=== PATIENT | female | born 1940 | race Caucasian/White ===

== ENCOUNTER 2018-09-02 14:30 | Emergency (ER) | payer MEDICARE, OTHER ==
[2018-09-02] MEDS ORDERED: SODIUM CHLORIDE 0.9% 1,000 ML IV STA (15:16)
--- NOTE | 2018-09-02 16:08 | XR ---
EXAMINATION TYPE: XR chest 2V DATE OF EXAM: 09/02/2018 COMPARISON: NONE HISTORY: Chest pain TECHNIQUE: Frontal and lateral views of the chest are obtained. FINDINGS: There is a moderate hiatal hernia present. Subacute appearing nondisplaced fracture of the posterior margin of right rib 6 is seen. There is pulmonary hyperinflation and increased anterior po sterior diameter of the chest with flattening of the diaphragms on the lateral image representing und erlying COPD. Heart is enlarged. There is generalized osseous demineralization. No focal consolidatio n, pleural effusion or pneumothorax. IMPRESSION: 1. Moderate hiatal hernia. 2. Radiographic sequela of COPD. 3. Nondisplaced posterior right rib 6 fracture appearing subacute. 4. Mild cardiomegaly. 5. Generalized osseous demineralization.
[2018-09-02 16:09] LABS: Basophils % (A) 0 %; Eosinophils # (A) 0.1 k/uL (0-0.7); Eosinophils % (A) 2 %; HCT 37.1 % (34.0-46.0); HGB 11.9 gm/dL (11.4-16.0); Lymphocytes # (A) 2.5 k/uL (1.0-4.8); Lymphocytes % (A) 33 %; MCH 29.7 pg (25.0-35.0); MCHC 32.1 g/dL (31.0-37.0); MCV 92.3 fL (80.0-100.0); Mean Platelet Volume 7.2; Monocytes # (A) 0.4 k/uL (0-1.0); Monocytes % (A) 5 %; Neutrophils # (A) 4.4 k/uL (1.3-7.7); Neutrophils % (A) 58 %; Platelet Count 343 k/uL (150-450); RBC 4.02 m/uL (3.80-5.40); RDW 12.6 % (11.5-15.5); WBC 7.6 k/uL (3.8-10.6)
[2018-09-02 16:22] LABS: INR 0.9 (<1.2); Partial Thromboplastin Time 23.3 sec (22.0-30.0); Prothrombin Time 9.8 sec (9.0-12.0)
[2018-09-02 16:23] VITALS: RESP 18
[2018-09-02 16:24] LABS: Calcium 9.2 mg/dL (8.4-10.2); Magnesium 1.8 mg/dL (1.6-2.3); Potassium 4.5 mmol/L (3.5-5.1); Total Bilirubin 0.3 mg/dL (0.2-1.3); Total Protein 6.9 g/dL (6.3-8.2)
--- NOTE | 2018-09-02 17:24 | CT ---
EXAMINATION TYPE: CT ChestAbdPelvis w con DATE OF EXAM: 09/02/2018 COMPARISON: CT abdomen 11/07/2012 HISTORY: Low back and Abdominal pain CT DLP: 676.9 mGycm Automated exposure control for dose reduction was used. CONTRAST: CT scan of the chest, abdomen and pelvis is performed without Oral Contrast and with IV Contrast, pat ient injected with 100 mL of Isovue 300. FINDINGS: There is minimal pulmonary emphysema. There is mild pleural scarring at the lung apices. There is mil d pleural thickening at the superior right major fissure. There is a mild infiltrate in the anterior segment left upper lobe. I see no pulmonary mass. There is a hiatal hernia. Thoracic aorta is atherom atous. There is no thoracic aortic aneurysm or dissection. There are multiple calcified bronchial lym ph nodes. There are enlarged mediastinal and bronchial lymph nodes that measure up to 23 x 16 mm. There are multiple calcified splenic granulomata. There is no evidence of a pancreatic mass. Liver sh ows no focal defect. The bile ducts are not dilated. Gallbladder appears normal. There is no adrenal mass. Kidneys show satisfactory contrast opacification. There is no hydronephrosi s. There is 1 cm cortical cyst lower pole right kidney. Abdominal aorta is atheromatous. There is mil d to centimeter aneurysm of the lower abdominal aorta. There is no retroperitoneal adenopathy. There is no evidence of abdominal aortic dissection. There is no retroperitoneal adenopathy. The bladder distends smoothly. There is no inguinal hernia. There is no free fluid in the pelvis. The re are scattered sigmoid diverticula. There is no evidence of diverticulitis. I see no dilated loops of bowel. There is no intestinal wall thickening. There is some spondylotic changes in the lumbar spine with disc space narrowing and spur formation. T here is no compression fracture seen in the thoracic and lumbar spine. The bony pelvis appears intact . IMPRESSION: Spondylotic changes in the lumbar spine without significant spinal stenosis. Mild thoraco lumbar levorotoscoliosis. Small 3 cm aneurysm of the lower abdominal aorta. Atherosclerotic vascular disease. Minimal sigmoid diverticulosis. Hiatal hernia. Minimal pulmonary emphysema. Minimal pleural scarring. Mediastinal and bronchial adeno gifty with calcification. This could relate to old granulomatous disease.
[2018-09-02 17:32] LABS: Appearance,Urine Clear (Clear); Bilirubin,Urine Negative (Negative); Blood,Urine Negative (Negative); Color,Urine Colorless; Glucose,Urine (UA) Negative (Negative); Ketones,Urine Negative (Negative); Leukocyte Esterase,Urine Small (Negative); Mucus,Urine Rare /hpf; Nitrite,Urine Negative (Negative); Protein,Urine Negative (Negative); RBC,Urine <1 /hpf (0-5); Specific Gravity,Urine 1.012 (1.001-1.035); Squamous Epithelial Cell,Urine 1 /hpf (0-4); Urobilinogen,Urine <2.0 mg/dL (<2.0)
--- NOTE | 2018-09-02 18:16 | ED ---
General Adult HPI - General Chief complaint: Abdominal Pain Stated complaint: abd pain, sob Source: patient, RN notes reviewed, old records reviewed Mode of arrival: ambulatory Limitations: no limitations - History of Present Illness Initial comments: 78-year-old female patient with past medical history of COPD presents to ED with 3 days of suprapubic abdominal pain and shortness of breath at night. Patient states that she has a long history of shortness of breath secondary soup , however states that she feels he has gotten slightly worse at night. Patient denies chest pain, pleuritic chest pain. Patient denies any history of cardiovascular disease. Patient states that the pain has diminished suprapubic region. Patient states that she has had pain urination. Patient denies fever chills, nausea vomiting diarrhea. Systemic: Pt denies fatigue, myalgia, fever/chills, rash. Pt denies weakness, night sweats, weight loss. Neuro: Pt denies headache, visual disturbances, syncope or pre-syncope. HEENT: Pt denies ocular discharge or irritation, otalgia, rhinorrhea, pharyngitis or notable lymphadenopathy. Cardiopulmonary: Pt denies chest pain, heart palpitations, dyspnea on exertion. Abdominal/GI: Pt denies abdominal pain, n/v/d. : Pt denies frequency/urgency. Denies new onset urinary or bowel incontinence. MSK: Pt denies myalgia, loss of strength or function in extremities. Neuro: Pt denies new onset weakness, paresthesias. - Related Data Home Medications Medication Instructions Recorded Confirmed Cholecalciferol [Vitamin D3] 1,000 unit PO DAILY 09/02/18 09/02/18 Cyanocobalamin (Vitamin B-12) 1,000 mcg PO DAILY 09/02/18 09/02/18 [Vitamin B-12] Gabapentin [Neurontin] 100 mg PO TID 09/02/18 09/02/18 HYDROcodone/APAP 7.5-325MG [[place] 1 tab PO TID 09/02/18 09/02/18 7.5-325] Levothyroxine Sodium [Synthroid] 25 mcg PO DAILY 09/02/18 09/02/18 Melatonin 3 mg PO HS 09/02/18 09/02/18 Omeprazole 20 mg PO BID 09/02/18 09/02/18 Pravastatin Sodium [Pravachol] 40 mg PO DAILY 09/02/18 09/02/18 busPIRone HCl [Buspar] 10 mg PO TID 09/02/18 09/02/18 rOPINIRole HCL [Requip] 1 - 2 tab PO HS 09/02/18 09/02/18 Previous Rx's Medication Instructions Recorded Albuterol Inhaler [Ventolin Hfa 1 - 2 puff INHALATION Q4-6H PRN #1 09/02/18 Inhaler] inhaler predniSONE 50 mg PO DAILY #5 tab 09/02/18 Allergies Allergy/AdvReac Type Severity Reaction Status Date / Time Penicillins Allergy Unknown Verified 09/02/18 15:47 phenazopyridine Allergy Unknown Verified 09/02/18 15:47 [From Pyridium] Review of Systems ROS Statement: Those systems with pertinent positive or pertinent negative responses have been documented in the HPI. ROS Other: All systems not noted in ROS Statement are negative. Past Medical History Past Medical History: GERD/Reflux, Hyperlipidemia, Thyroid Disorder Additional Past Medical History / Comment(s): chronic back pain, colitis, prolonged QT History of Any Multi-Drug Resistant Organisms: None Reported Past Psychological History: Anxiety Smoking Status: Former smoker Past Alcohol Use History: None Reported Past Drug Use History: None Reported General Exam - General Exam Comments Initial Comments: Constitutional: NAD, AOX3, Pt has pleasant affect. HEENT: NC/AT, trachea midline, neck supple, no lymphadenopathy. Posterior pharynx non erythematous, without exudates. External ears appear normal, without discharge. Mucous membranes moist. Eyes PERRLA, EOM intact. There is no scleral icterus. No pallor noted. Cardiopulmonary: RRR, no murmurs, rubs or gallops, no JVD noted. Lungs CTAB in anterior and posterior moise. No peripheral edema. Abdominal exam: Abdomen soft and non-distended. Probably tender to palpation suprapubic region, no ecchymoses, Saavedra sign negative, no pain in McBurney's point. Bowel sounds active in LLQ. No hepatosplenomegaly. No ecchymosis Neuro: CN II-XII intact. No nuchal rigidity. MSK: No posterior calf tenderness bilaterally, homans sign negative bilaterally. Posterior tibialis and radial pulse +2 bilaterally. Sensation intact in upper and lower extremities. Full active ROM in upper and lower extremities, 5/5 strength. Limitations: no limitations Course Vital Signs 09/02/18 09/02/18 09/02/18 14:37 15:30 16:00 Temperature 98.4 F Pulse Rate 87 64 59 L Respiratory 20 19 18 Rate Blood Pressure 152/82 134/65 134/65 O2 Sat by Pulse 99 97 99 Oximetry 09/02/18 09/02/18 16:30 19:20 Temperature 97.8 F Pulse Rate 56 L 53 L Respiratory 18 18 Rate Blood Pressure 134/65 143/68 O2 Sat by Pulse 98 98 Oximetry Medical Decision Making - Medical Decision Making 78-year-old female patient with past medical history of COPD presents to ED with 3 days of suprapubic abdominal pain and shortness of breath at night. Patient states that she has a long history of shortness of breath secondary soup , however states that she feels he has gotten slightly worse at night. Patient denies chest pain, pleuritic chest pain. Patient denies any history of cardiovascular disease. Patient states that the pain has diminished suprapubic region. Patient states that she has had pain urination. Patient denies fever chills, nausea vomiting diarrhea. Extensive evaluation conducted. EKG is not concerning for acute ischemia. Laboratory investigations including CBC, CMP, coagulation studies, UA, troponin, BNP were all within normal limits. CT chest abdomen pelvis displayed a 3 cm thoracic abdominal aneurysm, CABG, no other abnormal findings. Plain films displayed subacute possible posterior fracture, however not visualized on CT. Findings explained patient length. explained to patient that pain w/ urination are likely secondary to atrophic vaginitis, secondary to age. Shortness of breath secondary to COPD exacerbation. Patient treated for COPD exacerbation with prednisone. Patient to follow with primary care provider in 1-2 days. Patient to return to ED if new signs and symptoms of including chest pain shows breath abdominal pain, any other new symptoms. Case discussed with Dr. Means. - Lab Data Result diagrams: 09/02/18 15:28 09/02/18 15:28 Lab Results 09/02/18 09/02/18 09/02/18 Range/Units 15:28 15:28 15:28 WBC 7.6 (3.8-10.6) k/uL RBC 4.02 (3.80-5.40) m/uL Hgb 11.9 (11.4-16.0) gm/dL Hct 37.1 (34.0-46.0) % MCV 92.3 (80.0-100.0) fL MCH 29.7 (25.0-35.0) pg MCHC 32.1 (31.0-37.0) g/dL RDW 12.6 (11.5-15.5) % Plt Count 343 (150-450) k/uL Neutrophils % 58 % Lymphocytes % 33 % Monocytes % 5 % Eosinophils % 2 % Basophils % 0 % Neutrophils # 4.4 (1.3-7.7) k/uL Lymphocytes # 2.5 (1.0-4.8) k/uL Monocytes # 0.4 (0-1.0) k/uL Eosinophils # 0.1 (0-0.7) k/uL Basophils # 0.0 (0-0.2) k/uL PT (9.0-12.0) sec INR (<1.2) APTT (22.0-30.0) sec Sodium 138 (137-145) mmol/L Potassium 4.5 (3.5-5.1) mmol/L Chloride 107 (98-107) mmol/L Carbon Dioxide 22 (22-30) mmol/L Anion Gap 9 mmol/L BUN 11 (7-17) mg/dL Creatinine 0.80 (0.52-1.04) mg/dL Est GFR (CKD-EPI)AfAm 82 (>60 ml/min/1.73 sqM) Est GFR (CKD-EPI)NonAf 71 (>60 ml/min/1.73 sqM) Glucose 95 (74-99) mg/dL Plasma Lactic Acid Moise 1.1 (0.7-2.0) mmol/L Calcium 9.2 (8.4-10.2) mg/dL Phosphorus 4.0 (2.5-4.5) mg/dL Magnesium 1.8 (1.6-2.3) mg/dL Total Bilirubin 0.3 (0.2-1.3) mg/dL AST 20 (14-36) U/L ALT 27 (9-52) U/L Alkaline Phosphatase 63 (38-126) U/L Troponin I (0.000-0.034) ng/mL NT-Pro-B Natriuret Pep pg/mL Total Protein 6.9 (6.3-8.2) g/dL Albumin 4.0 (3.5-5.0) g/dL Amylase 51 (30-110) U/L Lipase 34 (23-300) U/L Urine Color Urine Appearance (Clear) Urine pH (5.0-8.0) Ur Specific [place] (1.001-1.035) Urine Protein (Negative) Urine Glucose (UA) (Negative) Urine Ketones (Negative) Urine Blood (Negative) Urine Nitrite (Negative) Urine Bilirubin (Negative) Urine Urobilinogen (<2.0) mg/dL Ur Leukocyte Esterase (Negative) Urine RBC (0-5) /hpf Urine WBC (0-5) /hpf Ur Squamous Epith Cells (0-4) /hpf Urine Mucus (None) /hpf 09/02/18 09/02/18 09/02/18 Range/Units 15:28 15:28 15:28 WBC (3.8-10.6) k/uL RBC (3.80-5.40) m/uL Hgb (11.4-16.0) gm/dL Hct (34.0-46.0) % MCV (80.0-100.0) fL MCH (25.0-35.0) pg MCHC (31.0-37.0) g/dL RDW (11.5-15.5) % Plt Count (150-450) k/uL Neutrophils % % Lymphocytes % % Monocytes % % Eosinophils % % Basophils % % Neutrophils # (1.3-7.7) k/uL Lymphocytes # (1.0-4.8) k/uL Monocytes # (0-1.0) k/uL Eosinophils # (0-0.7) k/uL Basophils # (0-0.2) k/uL PT 9.8 (9.0-12.0) sec INR 0.9 (<1.2) APTT 23.3 (22.0-30.0) sec Sodium (137-145) mmol/L Potassium (3.5-5.1) mmol/L Chloride (98-107) mmol/L Carbon Dioxide (22-30) mmol/L Anion Gap mmol/L BUN (7-17) mg/dL Creatinine (0.52-1.04) mg/dL Est GFR (CKD-EPI)AfAm (>60 ml/min/1.73 sqM) Est GFR (CKD-EPI)NonAf (>60 ml/min/1.73 sqM) Glucose (74-99) mg/dL Plasma Lactic Acid Moise (0.7-2.0) mmol/L Calcium (8.4-10.2) mg/dL Phosphorus (2.5-4.5) mg/dL Magnesium (1.6-2.3) mg/dL Total Bilirubin (0.2-1.3) mg/dL AST (14-36) U/L ALT (9-52) U/L Alkaline Phosphatase (38-126) U/L Troponin I <0.012 (0.000-0.034) ng/mL NT-Pro-B Natriuret Pep 489 pg/mL Total Protein (6.3-8.2) g/dL Albumin (3.5-5.0) g/dL Amylase (30-110) U/L Lipase (23-300) U/L Urine Color Urine Appearance (Clear) Urine pH (5.0-8.0) Ur Specific [place] (1.001-1.035) Urine Protein (Negative) Urine Glucose (UA) (Negative) Urine Ketones (Negative) Urine Blood (Negative) Urine Nitrite (Negative) Urine Bilirubin (Negative) Urine Urobilinogen (<2.0) mg/dL Ur Leukocyte Esterase (Negative) Urine RBC (0-5) /hpf Urine WBC (0-5) /hpf Ur Squamous Epith Cells (0-4) /hpf Urine Mucus (None) /hpf 09/02/18 Range/Units 17:06 WBC (3.8-10.6) k/uL RBC (3.80-5.40) m/uL Hgb (11.4-16.0) gm/dL Hct (34.0-46.0) % MCV (80.0-100.0) fL MCH (25.0-35.0) pg MCHC (31.0-37.0) g/dL RDW (11.5-15.5) % Plt Count (150-450) k/uL Neutrophils % % Lymphocytes % % Monocytes % % Eosinophils % % Basophils % % Neutrophils # (1.3-7.7) k/uL Lymphocytes # (1.0-4.8) k/uL Monocytes # (0-1.0) k/uL Eosinophils # (0-0.7) k/uL Basophils # (0-0.2) k/uL PT (9.0-12.0) sec INR (<1.2) APTT (22.0-30.0) sec Sodium (137-145) mmol/L Potassium (3.5-5.1) mmol/L Chloride (98-107) mmol/L Carbon Dioxide (22-30) mmol/L Anion Gap mmol/L BUN (7-17) mg/dL Creatinine (0.52-1.04) mg/dL Est GFR (CKD-EPI)AfAm (>60 ml/min/1.73 sqM) Est GFR (CKD-EPI)NonAf (>60 ml/min/1.73 sqM) Glucose (74-99) mg/dL Plasma Lactic Acid [place] (0.7-2.0) mmol/L Calcium (8.4-10.2) mg/dL Phosphorus (2.5-4.5) mg/dL Magnesium (1.6-2.3) mg/dL Total Bilirubin (0.2-1.3) mg/dL AST (14-36) U/L ALT (9-52) U/L Alkaline Phosphatase (38-126) U/L Troponin I (0.000-0.034) ng/mL NT-Pro-B Natriuret Pep pg/mL Total Protein (6.3-8.2) g/dL Albumin (3.5-5.0) g/dL Amylase (30-110) U/L Lipase (23-300) U/L Urine Color Colorless Urine Appearance Clear (Clear) Urine pH 7.0 (5.0-8.0) Ur Specific [place] 1.012 (1.001-1.035) Urine Protein Negative (Negative) Urine Glucose (UA) Negative (Negative) Urine Ketones Negative (Negative) Urine Blood Negative (Negative) Urine Nitrite Negative (Negative) Urine Bilirubin Negative (Negative) Urine Urobilinogen <2.0 (<2.0) mg/dL Ur Leukocyte Esterase Small H (Negative) Urine RBC <1 (0-5) /hpf Urine WBC 2 (0-5) /hpf Ur Squamous Epith Cells 1 (0-4) /hpf Urine Mucus Rare H (None) /hpf - EKG Data -: EKG Interpreted by Me (and dr means) EKG Comments: Intercurrent 55,. Follow 170, QRS 72, QT/QTc 472/451, sinus bradycardia otherwise normal EKG. Disposition Clinical Impression: COPD exacerbation Disposition: HOME SELF-CARE Condition: Good Instructions: COPD (Chronic Obstructive Pulmonary Disease) (ED) Additional Instructions: Patient to adhere to previously discussed treatment plan and will take medication(s) as directed. Patient to follow up with PCP in 1-2 days. Patient to return to ED if symptoms do not improve. Prescriptions: Albuterol Inhaler [Ventolin Hfa Inhaler] 1 - 2 puff INHALATION Q4-6H PRN #1 inhaler PRN Reason: Cough predniSONE 50 mg PO DAILY #5 tab Is patient prescribed a controlled substance at d/c from ED?: No Referrals: Sveta Reyes MD [Primary Care Provider] - 1-2 days Time of Disposition: 18:30
[2018-09-02 19:22] VITALS: BP 143/68; PULSE 53; TEMP 97.8
== END 2018-09-02 19:20 | disposition home or self-care (01) ==
LOC: EC 14:30
DX: J44.1 Chronic obstructive pulmonary disease with (acute) exacerbation (principal); I71.2 Thoracic aortic aneurysm, without rupture; I71.4 Abdominal aortic aneurysm, without rupture; R30.9 Painful micturition, unspecified; K21.9 Gastro-esophageal reflux disease without esophagitis; E78.5 Hyperlipidemia, unspecified; E07.9 Disorder of thyroid, unspecified; M54.9 Dorsalgia, unspecified; G89.29 Other chronic pain; F41.9 Anxiety disorder, unspecified; Z87.891 Personal history of nicotine dependence; Z79.891 Long term (current) use of opiate analgesic; Z79.899 Other long term (current) drug therapy; Z88.0 Allergy status to penicillin; Z88.8 Allergy status to other drugs, medicaments and biological substances
CPT/HCPCS: 36415; 93005; 83880; 80053; 82150; 83605; 83690; 83735; 84100; 84484; 85025; 85610; 85730; 81001; 71046; 71260; 74177; 99285; 96360; Q9967

== ENCOUNTER 2018-11-13 08:42 | Day surgery (SDC) | payer MEDICARE, OTHER ==
[2018-11-11 09:37] VITALS: BMI 24.2
[2018-11-13 09:12] VITALS: RESP 20; TEMP 97.1
[2018-11-13] MEDS ORDERED: LACTATED RINGERS 1,000 ML IV ONE ×2 (09:37)
[2018-11-13] MEDS ORDERED: HYDROcodone/APAP 7.5-325MG 1 EACH TAB PO ONE (09:44)
[2018-11-13] MEDS ORDERED: PROPOFOL 10 MG/ML 20 ML VIAL IV ONE (09:49)
[2018-11-13] MEDS ORDERED: LIDOCAINE 1% INJ 10MG/ML (20 ML MDV) ONE (09:49)
[2018-11-13] MEDS ORDERED: HYDROCODONE PO ONE (10:00)
[2018-11-13] MEDS ORDERED: APAP PO ONE (10:00)
--- NOTE | 2018-11-13 10:09 | P.PCN ---
Date of Procedure: 11/13/18 Procedure(s) Performed: BRIEF HISTORY: Patient is a 78-year-old, pleasant, female, scheduled for an upper endoscopy as a part of a value should've symptomatic pyloric stenosis. Last upper endoscopy with pyloric dilation was done in 2016. Lately has been having early satiety, epigastric discomfort and progressive weight loss.. PROCEDURE PERFORMED: Esophagogastroduodenoscopy with pyloric dilation. PREOPERATIVE DIAGNOSIS: Symptomatic pyloric stenosis. IV sedation per anesthesia. PROCEDURE: After informed consent was obtained, the patient was brought into the endoscopy unit. IV sedation was administered by Anesthesia under continuous monitoring. Initially the Olympus GIF-140 video endoscope was inserted into the mouth. Esophagus intubated without any difficulty. It was gradually advanced into the stomach . There was evidence of pyloric stenosis and the scope could not be advanced into the duodenum. At this time I proceeded with balloon dilation using 8-10 mm TTS balloon for 90 seconds and following this adequate dilation was not accomplished. At this time a 10-12 mm TTS balloon was passed through the scope and was dilated for 90 seconds in sequential fashion and following this there was some mucosal tear identified. The scope at this time was advanced into the duodenum. The bulb and the second part of the duodenum appeared normal. The scope at this time was withdrawn to the stomach, adequately insufflated with air, and upon careful examination, mucosa of the antrum, body, cardia and the fundus appeared normal. The scope was then withdrawn into the esophagus. The GE junction was located at 39 cm from the incisors. The esophagus appeared normal. Small hiatal hernia noted. There were no erosions or ulcerations seen and the patient tolerated the procedure well. IMPRESSION: 1. Tight pyloric stenosis status post balloon dilation using 8, 9, 10, 11 and 12 mm TTS balloon as described. 2. Hiatal hernia. RECOMMENDATIONS: The findings of this examination were discussed with the patient. She will remain on a clear liquid diet today. She will continue with Prilosec 20 mg daily and she'll be seen in office in 6 weeks
[2018-11-13 10:37] VITALS: BP 131/49; PULSE 65
== END 2018-11-13 10:57 | disposition home or self-care (01) ==
LOC: ORWHC2ENDO 08:42
PROVIDERS: ATTEND Internal Medicine Gastroenterology
DX: K31.1 Adult hypertrophic pyloric stenosis (principal); K44.9 Diaphragmatic hernia without obstruction or gangrene; I45.81 Long QT syndrome; Z87.891 Personal history of nicotine dependence; E07.9 Disorder of thyroid, unspecified; M54.16 Radiculopathy, lumbar region; K21.9 Gastro-esophageal reflux disease without esophagitis; Z79.890 Hormone replacement therapy; Z79.891 Long term (current) use of opiate analgesic; Z79.899 Other long term (current) drug therapy; Z88.0 Allergy status to penicillin
CPT/HCPCS: 43245; J2001; J2704; C1726; C1727

== ENCOUNTER 2018-11-30 20:22 | Emergency (ER) | payer MEDICARE, OTHER ==
[2018-11-30 20:39] VITALS: TEMP 98.3
[2018-11-30] MEDS ORDERED: DIAZEPAM 5 MG/ML 2 ML INJ IVP STA (22:02)
--- NOTE | 2018-11-30 22:22 | ED ---
General Adult HPI - General Chief complaint: Psychiatric Symptoms Stated complaint: Vaginal pain Time Seen by Provider: 11/30/18 20:47 Source: patient Mode of arrival: ambulatory Limitations: no limitations - History of Present Illness Initial comments: Julissa is a 78 yo female with past medical history most significant for chronic pain, fibromyalgia, restless leg syndrome, chronic urinary retention and dysuria. Patient presents the emergency department today for evaluation of chronic pain and depression. Patient reports that she's been taking her 7.5 mg Vicodin 3 times daily and has been compliant with her gabapentin but continues to have unbearable pain throughout her entire body. Patient states that today she told her daughter she couldn't live with this pain. Daughter bedside states that she feels that her mother's pain is not controlled that the pain is causing her mother depression. She reports that her mother spends all day in the home, she ports that she doesn't open the windows because the son makes her pain worse. Her mother doesn't into her activities of daily living she can no longer do housework her chores. She doesn't make her bed. Daughter states that today her mother was telling her that she was thinking of googling how many pills she would have to take to kill herself because she doesn't want to live like this anymore. - Related Data Home Medications Medication Instructions Recorded Confirmed Cholecalciferol [Vitamin D3] 1,000 unit PO DAILY 09/02/18 11/30/18 Cyanocobalamin (Vitamin B-12) 1,000 mcg PO DAILY 09/02/18 11/30/18 [Vitamin B-12] Gabapentin [Neurontin] 100 mg PO TID 09/02/18 11/30/18 HYDROcodone/APAP 7.5-325MG [[place] 1 tab PO TID PRN 09/02/18 11/30/18 7.5-325] Omeprazole 20 mg PO BID 09/02/18 11/30/18 Pravastatin Sodium [Pravachol] 40 mg PO DAILY 09/02/18 11/30/18 busPIRone HCl [Buspar] 10 mg PO TID 09/02/18 11/30/18 rOPINIRole HCL [Requip] 1 - 2 tab PO HS 09/02/18 11/30/18 Melatonin 10 mg PO HS 03/11/19 03/11/19 Previous Rx's Medication Instructions Recorded Cephalexin [Keflex] 500 mg PO Q8HR #21 cap 12/01/18 Diazepam [Valium] 5 mg PO TID PRN 3 Days #9 tab 12/01/18 Allergies Allergy/AdvReac Type Severity Reaction Status Date / Time Penicillins Allergy Unknown Verified 11/30/18 21:25 phenazopyridine Allergy Unknown Verified 11/30/18 21:25 [From Pyridium] Review of Systems ROS Statement: Those systems with pertinent positive or pertinent negative responses have been documented in the HPI. ROS Other: All systems not noted in ROS Statement are negative. Past Medical History Past Medical History: GERD/Reflux, Hyperlipidemia, Thyroid Disorder Additional Past Medical History / Comment(s): chronic back pain, colitis, prolonged QT, gastroscopy History of Any Multi-Drug Resistant Organisms: None Reported Past Surgical History: Bladder Surgery, Breast Surgery Additional Past Surgical History / Comment(s): rt breast biopsy- clip remains Past Anesthesia/Blood Transfusion Reactions: No Reported Reaction Past Psychological History: Anxiety Smoking Status: Smoker, current status unknown Past Alcohol Use History: None Reported Past Drug Use History: None Reported - Past Family History Daughter(s) Family Medical History: Cancer Sister(s) Family Medical History: Cancer Additional Family Medical History / Comment(s): lung cancer Brother(s) Family Medical History: Cancer, CVA/TIA Additional Family Medical History / Comment(s): liver cancer Mother Additional Family Medical History / Comment(s): hx myelofibrosis General Exam - General Exam Comments Initial Comments: Physical Exam GENERAL: Chronically ill-appearing elderly female HENT: Normocephalic, Atraumatic. EYES: PERRL, EOMI Pupils 5 mm reactive PULMONARY: Unlabored respirations. No audible rales rhonchi or wheezing was noted. CARDIOVASCULAR: There is a regular rate and rhythm without any murmurs gallops or rubs. ABDOMEN: Soft and nontender with normal bowel sounds. SKIN: Skin is clear with no lesions or rashes and otherwise unremarkable. : Deferred NEUROLOGIC: Patient is alert and oriented x3. Moving all extremities spontaneously MUSCULOSKELETAL: Normal extremities with adequate strength and full range of motion. No lower extremity swelling or edema. No calf tenderness. Generalized muscle atrophy PSYCHIATRIC: Helpless affect, depressed Limitations: no limitations Limitations: no limitations Course Vital Signs 11/30/18 12/01/18 20:34 02:00 Temperature 98.3 F Pulse Rate 79 86 Respiratory 18 16 Rate Blood Pressure 153/73 144/81 O2 Sat by Pulse 95 Oximetry Medical Decision Making - Medical Decision Making Patient was seen and evaluated history is obtained from patient and daughter bedside Patient with chronic pain, patient appears to be developing failure to thrive she's not getting out of bed not attending to ADLs, reports pain is intractable to by mouth narcotics Daughter expressing concern that the patient is becoming suicidal due to pain Valium was ordered for discomfort, patient will have basic labs and evaluation by psychiatric nursing Labs and no significant abnormalities ears results were discussed with the patient and daughter bedside. Patient reports a Valium helped momentarily however she is upset that she did not receive any stronger pain medications. I am morphine was ordered patient awaiting evaluation by EPS. Patient was evaluated by EPS who recommended outpatient follow-up. I suspect that the patient's pain is multifactorial including depression which exacerbates her somatic pain. I discussed this with the patient and daughter. I do think she would benefit from outpatient follow-up with pain management to discuss multiple modalities for pain management. Patient expressing disappointment that she is no longer on Klonopin and that her Percocet 7.5 mg do not work. I advised her that she will likely need more than just pills and will need some physical therapy for pain management, patient states she's not willing to do physical therapy. Patient daughter upset due to duration of her stay in the emergency department. Requesting repeat doses of narcotics prior to discharge, additional IM morphine given, patient discharged home. - Lab Data Result diagrams: 11/30/18 22:20 11/30/18 22:20 Lab Results 11/30/18 11/30/18 11/30/18 Range/Units 22:08 22:20 22:20 WBC 9.4 (3.8-10.6) k/uL RBC 3.95 (3.80-5.40) m/uL Hgb 11.9 (11.4-16.0) gm/dL Hct 36.3 (34.0-46.0) % MCV 91.9 (80.0-100.0) fL MCH 30.2 (25.0-35.0) pg MCHC 32.8 (31.0-37.0) g/dL RDW 12.2 (11.5-15.5) % Plt Count 340 (150-450) k/uL Neutrophils % 69 % Lymphocytes % 23 % Monocytes % 4 % Eosinophils % 2 % Basophils % 0 % Neutrophils # 6.5 (1.3-7.7) k/uL Lymphocytes # 2.2 (1.0-4.8) k/uL Monocytes # 0.4 (0-1.0) k/uL Eosinophils # 0.2 (0-0.7) k/uL Basophils # 0.0 (0-0.2) k/uL Sodium 137 (137-145) mmol/L Potassium 4.1 (3.5-5.1) mmol/L Chloride 107 (98-107) mmol/L Carbon Dioxide 21 L (22-30) mmol/L Anion Gap 9 mmol/L BUN 11 (7-17) mg/dL Creatinine 0.69 (0.52-1.04) mg/dL Est GFR (CKD-EPI)AfAm >90 (>60 ml/min/1.73 sqM) Est GFR (CKD-EPI)NonAf 84 (>60 ml/min/1.73 sqM) Glucose 109 H (74-99) mg/dL Calcium 9.4 (8.4-10.2) mg/dL Total Bilirubin 0.4 (0.2-1.3) mg/dL AST 19 (14-36) U/L ALT 28 (9-52) U/L Alkaline Phosphatase 80 (38-126) U/L Creatine Kinase 67 (30-135) U/L Total Protein 6.5 (6.3-8.2) g/dL Albumin 3.7 (3.5-5.0) g/dL TSH 1.880 (0.465-4.680) mIU/L Urine Color Light Yellow Urine Appearance Clear (Clear) Urine pH 5.5 (5.0-8.0) Ur Specific [place] 1.007 (1.001-1.035) Urine Protein Negative (Negative) Urine Glucose (UA) Negative (Negative) Urine Ketones Negative (Negative) Urine Blood Negative (Negative) Urine Nitrite Negative (Negative) Urine Bilirubin Negative (Negative) Urine Urobilinogen <2.0 (<2.0) mg/dL Ur Leukocyte Esterase Moderate H (Negative) Urine RBC 2 (0-5) /hpf Urine WBC 12 H (0-5) /hpf Ur Squamous Epith Cells 4 (0-4) /hpf Ur Transition Epith Cell 1 (0-1) /hpf Urine Bacteria Rare H (None) /hpf Hyaline Casts 1 (0-2) /lpf Urine Mucus Rare H (None) /hpf Urine Opiates Screen Detected H (NotDetected) Ur Oxycodone Screen Not Detected (NotDetected) Urine Methadone Screen Not Detected (NotDetected) Ur Propoxyphene Screen Not Detected (NotDetected) Ur Barbiturates Screen Not Detected (NotDetected) U Tricyclic Antidepress Not Detected (NotDetected) Ur Phencyclidine Scrn Not Detected (NotDetected) Ur Amphetamines Screen Not Detected (NotDetected) U Methamphetamines Scrn Not Detected (NotDetected) U Benzodiazepines Scrn Not Detected (NotDetected) Urine Cocaine Screen Not Detected (NotDetected) U Marijuana (THC) Screen Not Detected (NotDetected) Disposition Clinical Impression: Chronic pain, UTI (urinary tract infection) Disposition: HOME SELF-CARE Condition: Stable Instructions (If sedation given, give patient instructions): Fibromyalgia (ED), Chronic Pain (ED) Prescriptions: Cephalexin [Keflex] 500 mg PO Q8HR #21 cap Diazepam [Valium] 5 mg PO TID PRN 3 Days #9 tab PRN Reason: Pain Is patient prescribed a controlled substance at d/c from ED?: Yes When asked, does pt state using other controlled substances?: Yes If prescribed controlled substance>3 days was MAPS reviewed?: Prescribed <3 Days Referrals: Sveta Reyes MD [Primary Care Provider] - 1-2 days Gal Ro MD [STAFF PHYSICIAN] - 1-2 days
[2018-11-30 22:29] LABS: Basophils % (A) 0 %; Eosinophils # (A) 0.2 k/uL (0-0.7); Eosinophils % (A) 2 %; HCT 36.3 % (34.0-46.0); HGB 11.9 gm/dL (11.4-16.0); Lymphocytes # (A) 2.2 k/uL (1.0-4.8); Lymphocytes % (A) 23 %; MCH 30.2 pg (25.0-35.0); MCHC 32.8 g/dL (31.0-37.0); MCV 91.9 fL (80.0-100.0); Mean Platelet Volume 6.7; Monocytes # (A) 0.4 k/uL (0-1.0); Monocytes % (A) 4 %; Neutrophils # (A) 6.5 k/uL (1.3-7.7); Neutrophils % (A) 69 %; Platelet Count 340 k/uL (150-450); RBC 3.95 m/uL (3.80-5.40); RDW 12.2 % (11.5-15.5); WBC 9.4 k/uL (3.8-10.6)
[2018-11-30 22:30] LABS: Appearance,Urine Clear (Clear); Bacteria,Urine Rare /hpf; Bilirubin,Urine Negative (Negative); Blood,Urine Negative (Negative); Color,Urine Light Yellow; Glucose,Urine (UA) Negative (Negative); Hyaline Casts,Urine 1 /lpf (0-2); Ketones,Urine Negative (Negative); Leukocyte Esterase,Urine Moderate (Negative); Mucus,Urine Rare /hpf; Nitrite,Urine Negative (Negative); PH, Urine 5.5 (5.0-8.0); Protein,Urine Negative (Negative); RBC,Urine 2 /hpf (0-5); Specific Gravity,Urine 1.007 (1.001-1.035); Squamous Epithelial Cell,Urine 4 /hpf (0-4); Transitional Epi Cells,Urine 1 /hpf (0-1); Urobilinogen,Urine <2.0 mg/dL (<2.0); WBC,Urine 12 /hpf (0-5)
[2018-11-30] MEDS ORDERED: DIAZEPAM 5 MG TAB PO STA (22:30)
[2018-11-30 22:34] LABS: Amphetamine Screen,Urine Not Detected (NotDetected); Barbiturate Screen,Urine Not Detected (NotDetected); Benzodiazepines Screen,Urine Not Detected (NotDetected); Cocaine Screen,Urine Not Detected (NotDetected); Methadone Screen, Urine Not Detected (NotDetected); Opiate Screen,Urine Detected (NotDetected); Oxycodone Screen, Urine Not Detected (NotDetected); Phencyclidine Screen,Urine Not Detected (NotDetected); Tricyclic Antidepressant,Urine Not Detected (NotDetected); Urn Cannabinoid Scrn Not Detected (NotDetected)
[2018-11-30 22:39] LABS: ALT 28 U/L (9-52); AST 19 U/L (14-36); Albumin 3.7 g/dL (3.5-5.0); Alkaline Phosphatase 80 U/L (38-126); Anion Gap 9 mmol/L; Blood Urea Nitrogen 11 mg/dL (7-17); Calcium 9.4 mg/dL (8.4-10.2); Carbon Dioxide 21 mmol/L (22-30); Chloride 107 mmol/L (98-107); Creatine Kinase 67 U/L (30-135); Glucose 109 mg/dL (74-99); Potassium 4.1 mmol/L (3.5-5.1); Sodium 137 mmol/L (137-145); Total Bilirubin 0.4 mg/dL (0.2-1.3); Total Protein 6.5 g/dL (6.3-8.2)
[2018-11-30] MEDS ORDERED: MORPHINE SULFATE 4 MG/ML SYRINGE IM STA (23:37)
[2018-11-30] MEDS ORDERED: CEPHALEXIN 500MG STARTER PACK 4 CAP BTL PO STA (23:37)
[2018-12-01 02:26] VITALS: BP 144/81; PULSE 86; RESP 16
== END 2018-12-01 02:42 | disposition home or self-care (01) ==
LOC: EC 20:22
DX: G89.29 Other chronic pain (principal); N39.0 Urinary tract infection, site not specified; F32.9 Major depressive disorder, single episode, unspecified; K21.9 Gastro-esophageal reflux disease without esophagitis; E78.5 Hyperlipidemia, unspecified; F41.9 Anxiety disorder, unspecified; F17.200 Nicotine dependence, unspecified, uncomplicated; Z79.899 Other long term (current) drug therapy; Z88.0 Allergy status to penicillin; Z88.1 Allergy status to other antibiotic agents
CPT/HCPCS: 82075; 36415; 80053; 84443; 82550; 85025; 81001; 80306; 99283; 96372; J2270

== ENCOUNTER → 2019-01-28 | Outpatient (CLI) | payer MEDICARE, OTHER ==
--- NOTE | 2019-01-28 16:10 | CT ---
EXAMINATION TYPE: CT chest wo con DATE OF EXAM: 01/28/2019 COMPARISON: 09/02/2018 HISTORY: 78-year-old female shortness of breath, Difficulty breathing. TECHNIQUE: Contiguous axial scanning of the chest without IV contrast. Coronal and sagittal reconstru ctions performed. CT DLP: 279.7 mGycm Automated exposure control for dose reduction was used. FINDINGS: Heart normal size without pericardial effusion. Coronary vessel calcifications are present. Mild to moderate atherosclerotic arch calcifications. Conventional arch vessel branching anatomy. Calcified right hilar lymph nodes. There is confluent mediastinal, thoracic inlet, and supraclavicula r lymphadenopathy with lymph nodes measuring up to 2.1 cm. Prevascular space lymphadenopathy measures up to 2.3 cm. Subcarinal lymphadenopathy measures up to 1.9 cm. There is cut off of the left upper lobe and lingular bronchus. Volume loss and extensive opacity thro ughout the collapsed portion of the lung. There is irregular narrowing of the left mainstem and lower lobe are branches from extrinsic mass effect. Moderate underlying emphysema. Trace left pleural effusion. 4 mm nodularity posterior right lower lobe may have been present on the prior exam. New, too numerous to count hepatic lesions with severe burden to the liver. Bones: Dextroconvex scoliosis. Moderate to advanced degenerative disc disease lower thoracic spine. IMPRESSION: 1. PROGRESSIVE, NOW CONFLUENT MEDIASTINAL, THORACIC INLET, AND SUPRACLAVICULAR LYMPHADENOPATHY WITH L YMPH NODES MEASURING UP TO 2.3 CM. FINDINGS COMPATIBLE WITH METASTATIC DISEASE. 2. SOFT TISSUE NOW CUTS OFF THE LEFT UPPER LOBE AND LINGUAL BRONCHUS. THERE IS IRREGULAR NARROWING OF THE LEFT MAINSTEM AND LEFT LOWER LOBE BRONCHUS FROM EXTRINSIC MASS EFFECT, LIKELY SECONDARY TO ENCAS ING NEOPLASM. 3. VOLUME LOSS AND COMPLETE OPACIFICATION OF THE LEFT UPPER LOBE DUE TO A COMBINATION OF UNDERLYING M ASS, ATELECTASIS, AND/OR PNEUMONITIS. 4. SEVERE BURDEN OF NEW, DIFFUSE METASTATIC DISEASE TO THE LIVER. 5. COPD WITH MODERATE EMPHYSEMA AND TRACE LEFT EFFUSION.
== END | disposition home or self-care (01) ==
LOC: RADCTMAIN 15:30
PROVIDERS: ATTEND Family Medicine
DX: C22.8 Malignant neoplasm of liver, primary, unspecified as to type (principal); R91.8 Other nonspecific abnormal finding of lung field; J98.11 Atelectasis; J43.9 Emphysema, unspecified; R59.1 Generalized enlarged lymph nodes; J90 Pleural effusion, not elsewhere classified
CPT/HCPCS: 71250

== ENCOUNTER 2019-01-29 11:52 | Inpatient (IN) | payer MEDICARE, OTHER ==
[2019-01-29] MEDS ORDERED: HYDROcodone/APAP 5-325MG 1 EACH TAB PO PRN (14:05)
[2019-01-29] MEDS ORDERED: HYDROmorphone 1 MG/ML 1 ML SYRINGE IVP PRN (14:05)
[2019-01-29] MEDS ORDERED: ACETAMINOPHEN TAB 325 MG TAB PO PRN (14:05)
[2019-01-29 15:09] LABS: HCT 41.1 % (34.0-46.0); HGB 12.7 gm/dL (11.4-16.0); MCH 27.9 pg (25.0-35.0); MCHC 30.9 g/dL (31.0-37.0); MCV 90.2 fL (80.0-100.0); Mean Platelet Volume 6.8; Platelet Count 641 k/uL (150-450); RBC 4.55 m/uL (3.80-5.40); WBC 12.6 k/uL (3.8-10.6)
[2019-01-29 15:14] VITALS: BMI 24.0
[2019-01-29 15:26] LABS: Albumin 3.7 g/dL (3.5-5.0); Calcium 9.8 mg/dL (8.4-10.2); Potassium 4.8 mmol/L (3.5-5.1); Total Bilirubin 0.4 mg/dL (0.2-1.3); Total Protein 6.7 g/dL (6.3-8.2)
[2019-01-29] MEDS: IOPAMIDOL-300 CONTRAST 30 ML VIAL (ORAL USE) PO PRN ×2 (16:17→17:18)
[2019-01-29] MEDS: SODIUM CHLORIDE 0.9% 1,000 ML IV SCH (16:17)
[2019-01-29 16:54] LABS: Prothrombin Time 10.7 sec (9.0-12.0)
--- NOTE | 2019-01-29 16:58 | P.CNPUL ---
History of Present Illness Consult date: 01/29/19 Requesting physician: Manoj Stewart Reason for consult: abnormal CXR/CT Chief complaint: Left chest pain History of present illness: This is a very pleasant 78-year-old female patient who follows with Dr. Reyes as her primary care physician. She has a history of hypothyroidism, hyperlipidemia, gastroesophageal reflux disease, prolonged QT, colitis, chronic pain syndrome, fibromyalgia, restless leg syndrome, chronic urinary retention and dysuria. She has been maintained on [place] 7.5325 3 times a day when necessary. She has been seen in the emergency room and more than 1 occasion for the symptoms of pain. In August 2018 she had been seen in the emergency room for abdominal pain and shortness of breath. A CAT scan at that time revealed a mild infiltrate in the anterior segment of the left upper lobe. No pulmonary masses identified. There were enlarged mediastinal and bronchial lymph nodes measuring up to 23 x 16 mm. There was a small 3 cm aneurysm in the lower abdominal aorta which the family states was being followed in the outpatient setting. She was seen this week at an urgent care for continued pain and shortness of breath and noted abnormalities on a chest x-ray. She was scheduled yesterday for an outpatient CAT scan of the chest. This scan now reveals conflu ent mediastinal, thoracic inlet, and supra clavicular lymphadenopathy with lymph nodes measuring up to 2.3 cm compatible with metastatic disease. Soft tissue the left upper lobe and lingula bronchus. There is irregular narrowing of the left mainstem and left lower lobe bronchus from extrinsic mass effect, likely secondary to increasing neoplasm. There is volume loss and complete opacification of the left upper lobe due to a combination of underlying mass, atelectasis and/or pneumonitis. There is severe burden of new diffuse metastatic disease to the liver. Evidence of moderate emphysema with trace left pleural effusion. Based on these findings and the patient's continued complaints of pain including left chest wall and under her left arm she was referred as a direct admit for pain control by Dr. Bartlett. She is seen today in consultation on the oncology floor. She is currently awake and alert in no acute distress. She is maintaining O2 saturations in the mid 90s on room air. She's afebrile. Hemodynamically stable. White count 12.6. Hemoglobin 12.7. Creatinine 0.85. AST 78, ALT 74, alk phos 318. She has been initiated on [place], Dilaudid, IV Solu-Medrol. Computed tomography scan of the abdomen has been ordered as well. Review of Systems REVIEW OF SYSTEMS: CONSTITUTIONAL: Denies any recent significant weight loss, maybe 5 or 6 pounds in the last 3 months. EYES: Denies change in vision. EARS, NOSE, MOUTH, THROAT: Denies headaches, denies sore throat. CARDIOVASCULAR: Denies chest pain, palpitations or syncopal episodes. RESPIRATORY: Positive for shortness of breath, cough, congestion no hemoptysis. GASTROINTESTINAL: Denies change in appetite, denies abdominal pain GENITOURINARY: Denies hematuria, denies infections. MUSKULOSKELETAL: Positive for musculoskeletal pain, generalized as well as left chest wall. INTEGUMENTARY: Denies rash, denies eczema. NEUROLOGICAL: Denies recent memory loss, no recent seizure activity. PSYCHIATRIC: Positive for anxiety, depression. HEMATOLOGIC/LYMPHATIC: Denies anemia, denies enlarged lymph nodes. Past Medical History Past Medical History: COPD, Fibromyalgia, GERD/Reflux, Hyperlipidemia, Thyroid Disorder Additional Past Medical History / Comment(s): chronic back pain, Crohns, prolonged QT, Hepatitis A (20 yrs ago), Hx anemia., Hx of EGD with dilation., Bladder pain after urination., Walker prn. History of Any Multi-Drug Resistant Organisms: None Reported Past Surgical History: Bladder Surgery, Breast Surgery Additional Past Surgical History / Comment(s): rt breast biopsy- clip remains, EGD with Dilation Past Anesthesia/Blood Transfusion Reactions: No Reported Reaction Past Psychological History: Anxiety, Depression Smoking Status: Current every day smoker Past Alcohol Use History: None Reported Additional Past Alcohol Use History / Comment(s): smoked 50 years 1- 1 12 ppd quit 2015 Past Drug Use History: None Reported - Past Family History Daughter(s) Family Medical History: Cancer Sister(s) Family Medical History: Cancer Additional Family Medical History / Comment(s): lung cancer Brother(s) Family Medical History: Cancer, CVA/TIA Additional Family Medical History / Comment(s): liver cancer Mother Additional Family Medical History / Comment(s): hx myelofibrosis Medications and Allergies Home Medications Medication Instructions Recorded Confirmed Type Omeprazole 20 mg PO BID 09/02/18 01/29/19 History Pravastatin Sodium [Pravachol] 40 mg PO DAILY 09/02/18 01/29/19 History busPIRone HCl [Buspar] 15 mg PO BID 09/02/18 01/29/19 History Melatonin 10 mg PO HS 11/30/18 01/29/19 History Levothyroxine Sodium 25 mcg PO DAILY 12/17/18 01/29/19 History clonazePAM [KlonoPIN] 1 mg PO HS 12/17/18 01/29/19 History rOPINIRole HCL [Requip] 0.25 mg PO BID 12/17/18 01/29/19 History Cefuroxime Axetil [Ceftin] 500 mg PO BID 01/29/19 01/29/19 History Gabapentin [Neurontin] 900 mg PO TID 01/29/19 01/29/19 History methylPREDNISolone Dose Pack See Taper PO DAILY 01/29/19 01/29/19 History [Medrol Dose Pack] oxyCODONE-APAP 7.5-325MG [Percocet 1 tab PO Q6HR PRN 01/29/19 01/29/19 History 7.5-325 mg] Allergies Allergy/AdvReac Type Severity Reaction Status Date / Time Penicillins Allergy Unknown Verified 01/29/19 15:45 phenazopyridine Allergy Unknown Verified 01/29/19 15:45 [From Pyridium] Physical Exam Vitals: Vital Signs Temp Pulse Resp BP Pulse Ox 01/29/19 14:51 98 F 64 17 136/71 95 Intake and Output 01/29/19 01/29/19 01/29/19 06:59 14:59 22:59 Other: Weight 67.585 kg GENERAL EXAM: Pleasant 78-year-old female patient. Alert, in mild distress secondary to generalized pain. HEAD: Normocephalic. EYES: Normal reaction of pupils, equal size. NOSE: Clear with pink turbinates. THROAT: No erythema or exudates. NECK: No masses, no JVD. CHEST: No chest wall deformity. LUNGS: Equal air entry with no crackles, wheeze, rhonchi or dullness. CVS: S1 and S2 normal with no audible murmur, regular rhythm. ABDOMEN: No hepatosplenomegaly, normal bowel sounds, no guarding or rigidity. SPINE: Scoliosis SKIN: No rashes CENTRAL NERVOUS SYSTEM: No focal deficits, tone is normal in all 4 extremities. EXTREMITIES: There is no peripheral edema. No clubbing, no cyanosis. Peripheral pulses are intact. Results - Laboratory Findings CBC and BMP: 01/29/19 14:41 01/29/19 14:41 Abnormal lab findings: Abnormal Labs 01/29/19 01/29/19 14:41 14:41 WBC 12.6 H MCHC 30.9 L Plt Count 641 H Sodium 133 L Glucose 113 H AST 78 H ALT 74 H Alkaline Phosphatase 318 H - Diagnostic Findings CT scan - chest: image reviewed Assessment and Plan Assessment: Impression: #1 Dyspnea secondary to progressive confluent mediastinal, thoracic inlet, and supra clavicular lymphadenopathy with lymph nodes measuring up to 2.3 cm area compatible with metastatic disease. Soft tissue cuts off the left upper lobe and lingular bronchus. There is irregular narrowing of the left mainstem and left lower lobe bronchus from extrinsic mass affect him a likely secondary to an JOSE D neoplasm. Volume loss and complete opacification of the left upper lobe due to a combination of underlying mass, atelectasis, and/or pneumonitis. Suspect small cell lung cancer due to the rapid progression. #2 Abdominal pain and discomfort suspect secondary to severe burden of new diffuse metastatic disease to the liver. Elevated LFTs. #3 Left chest wall pain suspect metastatic involvement. #4 History of heavy chronic tobacco dependence however quit 2 years ago. #5 Scoliosis with moderate to advanced degenerative disc disease of the lower thoracic spine. #6 History of pyloric stenosis status post EGD with pyloric dilation on 11/13/2018. #7 History of chronic pain syndrome. #8 Hyperlipidemia. #9 Hypothyroidism. #10 Anxiety. #11 Prolonged QT syndrome. Plan: The patient was seen and evaluated by Dr. Baker. Previous CAT scan, recent CAT scan reviewed. Noted as above. Suspect small cell lung cancer due to the rapid progression. He had a long discussion with the patient and her two daughters who are at the bedside. We will plan for bronchoscopy with biopsy on 02/01/[address] Mohr. They are agreeable to the plan. Continue IV Solu- Medrol, bronchodilators, pain management per medical service, computed tomography scan of the abdomen pending. We will continue to follow and make further recommendations based on her clinical status. I, the cosigning physician, performed a history & physical examination of the patient. Lungs sounds with scattered rhonchi more so on the left lung. Maintaining good O2 saturations in the 90s on room air. I discussed the assessment and plan of care with my nurse practitioner, Callie Ibanez. I attest to the above note as dictated by her.
--- NOTE | 2019-01-29 18:01 | P.CONS ---
History of Present Illness - Reason for Consult Consult date: 01/29/19 New Lung cancer with Metastatic disease Requesting physician: Neema Meeks - Chief Complaint new lung mass and sob - History of Present Illness Julissa is a pleasant 78 year old female patient with known history of hypothyroidism, GERD, Chronic Pain, Hyperlipidemia, Fibromyalgia, RLS, Chronic urinary retention, recurrent UTIs. She has multiple previous admissions for c omplaints of pain. In August of 2018 she presented to hospital with complaints of shortness of breath and abdominal pain. CT Chest was done at that time, no mass identified. She did however have enlarged mediastinal and bronchial lymph nodes identified which measured up to [id number]. Also, a 3cm aortic aneurysm. Since August the Shortness of breath had continued and has become progressively worse. She presented to Urgent care yesterday, urgent care performed a chest xray and noted abnormalities therefore was scheduled for a CT Chest as outpatient. CT Chest from 01/28/19 revealed confluent mediastinal, thoracic, and supraclavicular lymphadenopathy with largest 2.3cm in size. There was a soft tissue lenft upper lobe and lingula bronchus identified. Irregular narrowing of the left mainstem and left lower lobe bronchus from likely mass effect. Also mentioned was complete opacification of the left upper lobe: underlying mass, atelectasis, and/or pneumonitis. There also appears to be severe burden of new diffuse metastatic liver disease, evidence of emphysema, trace pleural effusion. She was sent to [facility] as a direct admit for further work-up Review of Systems A 14 point review of systems assessed and completed and all negative except HPI Past Medical History Past Medical History: COPD, Fibromyalgia, GERD/Reflux, Hyperlipidemia, Thyroid Disorder Additional Past Medical History / Comment(s): chronic back pain, Crohns, prolonged QT, Hepatitis A (20 yrs ago), Hx anemia., Hx of EGD with dilation., Bladder pain after urination., Walker prn. History of Any Multi-Drug Resistant Organisms: None Reported Past Surgical History: Bladder Surgery, Breast Surgery Additional Past Surgical History / Comment(s): rt breast biopsy- clip remains, EGD with Dilation Past Anesthesia/Blood Transfusion Reactions: No Reported Reaction Past Psychological History: Anxiety, Depression Smoking Status: Current every day smoker Past Alcohol Use History: None Reported Additional Past Alcohol Use History / Comment(s): smoked 50 years 1- 1 1/2 ppd quit 2016 Past Drug Use History: None Reported - Past Family History Daughter(s) Family Medical History: Cancer Sister(s) Family Medical History: Cancer Additional Family Medical History / Comment(s): lung cancer Brother(s) Family Medical History: Cancer, CVA/TIA Additional Family Medical History / Comment(s): liver cancer Mother Additional Family Medical History / Comment(s): hx myelofibrosis Medications and Allergies Home Medications Medication Instructions Recorded Confirmed Type Omeprazole 20 mg PO BID 09/02/18 01/29/19 History Pravastatin Sodium [Pravachol] 40 mg PO DAILY 09/02/18 01/29/19 History busPIRone HCl [Buspar] 15 mg PO BID 09/02/18 01/29/19 History Melatonin 10 mg PO HS 11/30/18 01/29/19 History Levothyroxine Sodium 25 mcg PO DAILY 12/17/18 01/29/19 History clonazePAM [KlonoPIN] 1 mg PO HS 12/17/18 01/29/19 History rOPINIRole HCL [Requip] 0.25 mg PO BID 12/17/18 01/29/19 History Cefuroxime Axetil [Ceftin] 500 mg PO BID 01/29/19 01/29/19 History Gabapentin [Neurontin] 900 mg PO TID 01/29/19 01/29/19 History methylPREDNISolone Dose Pack See Taper PO DAILY 01/29/19 01/29/19 History [Medrol Dose Pack] oxyCODONE-APAP 7.5-325MG [Percocet 1 tab PO Q6HR PRN 01/29/19 01/29/19 History 7.5-325 mg] Allergies Allergy/AdvReac Type Severity Reaction Status Date / Time Penicillins Allergy Unknown Verified 01/29/19 15:45 phenazopyridine Allergy Unknown Verified 01/29/19 15:45 [From Pyridium] Physical Exam Vitals: Vital Signs Temp Pulse Resp BP Pulse Ox 01/29/19 14:51 98 F 64 17 136/71 95 Intake and Output 01/29/19 01/29/19 01/29/19 06:59 14:59 22:59 Other: Weight 67.585 kg GEN Alert, in mild distress HEAD NCNT LYMPH: Supraclavicular adenopathy and shotty cervical adenopathy NECK: Supple LUNGS: Mild increased effort with expiratory wheeze, no stridor HEART: RRR, S1s2 ABD: Soft, ND, NT SKIN: No rashes NEURO: No focal deficits EXT There is no peripheral edema. Results CBC & Chem 7: 01/29/19 14:41 01/29/19 14:41 Labs: Abnormal Lab Results - Last 24 Hours (Table) 01/29/19 01/29/19 Range/Units 14:41 14:41 WBC 12.6 H (3.8-10.6) k/uL MCHC 30.9 L (31.0-37.0) g/dL Plt Count 641 H (150-450) k/uL Sodium 133 L (137-145) mmol/L Glucose 113 H (74-99) mg/dL AST 78 H (14-36) U/L ALT 74 H (9-52) U/L Alkaline Phosphatase 318 H (38-126) U/L Assessment and Plan (1) Lung mass Current Visit: Yes Status: Acute Code(s): R91.8 - OTHER NONSPECIFIC ABNORMAL FINDING OF LUNG FIELD SNOMED Code(s): 442019083 Plan: Assessment and recommendations: 1. 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 - Full staging CTs have been ordered. - Will order MRI brain and Bone scan to complete staging. - Pulmonary is following and plan for bronchoscopy in am for tissue biopsy. Florence Buitrago: JUNE
[2019-01-29] MEDS: methylPREDNISolone SOD SUCCI 125 MG/2 ML VIAL IV SCH ×2 (18:18→23:02)
[2019-01-29] MEDS: HEPARIN SODIUM,PORCINE 5,000 UNIT/ML 1 ML VIAL SQ SCH (20:10)
--- NOTE | 2019-01-29 20:25 | CT ---
EXAMINATION TYPE: CT abdomen pelvis w con DATE OF EXAM: 01/29/2019 COMPARISON: 09/02/2018 HISTORY: recent dx of lung ca CT DLP: 625.1 mGycm Automated exposure control for dose reduction was used. TECHNIQUE: Helical acquisition of images was performed from the lung bases through the pelvis. CONTRAST: Performed with Oral Contrast and with IV Contrast, patient injected with 100 mL of Isovue 300. FINDINGS: There is left pleural effusion. There is hiatal hernia. Heart size is normal. There are numerous calcified splenic granulomata. There is no evidence of a pancreatic mass. There are numerous low-density masses throughout the liver that measure up to 5 cm. The bile ducts ar e not dilated. There is no adrenal mass. Kidneys show satisfactory contrast opacification. There is no hydronephrosi s. Abdominal aorta is atheromatous. There is no retroperitoneal adenopathy. There is 2.8 cm minimal a neurysm lower abdominal aorta. There is no evidence of a pelvic mass. Bladder distends smoothly. Ther e is no inguinal hernia. There is no free fluid in the pelvis. There are multiple sigmoid diverticula . There is no sign of diverticulitis. There is no mesenteric edema. There is no sign of a bowel obstr uction. There is no free air or ascites. There is multilevel spondylosis in the lumbar spine. I see no focal bone destruction. IMPRESSION: LEFT PLEURAL EFFUSION. EXTENSIVE LIVER DISEASE CONSISTENT WITH METASTATIC DISEASE. LIVER ABNORMALITY NEW COMPARED TO 09/02/2018 EXAM. PLEURAL EFFUSION NEW COMPARED TO OLD EXAM.
[2019-01-29] MEDS: IPRATROPIUM-ALBUTEROL 3 ML NEB INHALATION PRN (20:29)
[2019-01-29 22:34] LABS: Glucose,Whole Blood 141 mg/dL (75-99)
[2019-01-29] MEDS: HYDROmorphone 1 MG/ML 1 ML SYRINGE IVP PRN (22:35)
[2019-01-29] MEDS: LORazepam 0.5 MG TAB PO PRN (22:40)
[2019-01-29] MEDS: PANTOPRAZOLE 40 MG/10 ML VIAL IVP SCH (23:28)
[2019-01-30] MEDS ORDERED: DEXAMETHASONE SOD PHOSPHATE 4 MG/ML 1 ML VIAL IM SCH
[2019-01-30] MEDS: HYDROmorphone 1 MG/ML 1 ML SYRINGE IVP PRN ×5 (01:44→18:25)
[2019-01-30] MEDS: DEXAMETHASONE SOD PHOSPHATE 4 MG/ML 1 ML VIAL IV SCH ×4 (04:49→23:50)
[2019-01-30] MEDS ORDERED: DEXAMETHASONE SOD PHOSPHATE 4 MG/ML 1 ML VIAL IV SCH (06:00)
[2019-01-30] MEDS ORDERED: LORazepam 2 MG/ML INJ IV STA (07:15)
[2019-01-30 08:10] LABS: Basophils % (A) 0 %; Eosinophils # (A) 0.1 k/uL (0-0.7); Eosinophils % (A) 1 %; HGB 12.9 gm/dL (11.4-16.0); Lymphocytes % (A) 10 %; MCH 28.8 pg (25.0-35.0); MCHC 31.5 g/dL (31.0-37.0); MCV 91.3 fL (80.0-100.0); Mean Platelet Volume 6.6; Monocytes # (A) 0.1 k/uL (0-1.0); Monocytes % (A) 1 %; Neutrophils # (A) 8.5 k/uL (1.3-7.7); Neutrophils % (A) 86 %; Platelet Count 590 k/uL (150-450); RBC 4.49 m/uL (3.80-5.40); RDW 12.8 % (11.5-15.5); WBC 9.9 k/uL (3.8-10.6)
[2019-01-30] MEDS: FAMOTIDINE 20 MG TAB PO SCH (08:10)
[2019-01-30] MEDS: PANTOPRAZOLE 40 MG/10 ML VIAL IVP SCH (08:10)
[2019-01-30] MEDS: HEPARIN SODIUM,PORCINE 5,000 UNIT/ML 1 ML VIAL SQ SCH ×2 (08:10→20:12)
[2019-01-30 08:23] LABS: Albumin 3.8 g/dL (3.5-5.0); Chloride 101 mmol/L (98-107); Glucose 139 mg/dL (74-99); Potassium 4.6 mmol/L (3.5-5.1); Sodium 135 mmol/L (137-145); Total Protein 6.6 g/dL (6.3-8.2)
[2019-01-30 08:25] LABS: ALT 77 U/L (9-52); AST 72 U/L (14-36); Alkaline Phosphatase 331 U/L (38-126); Anion Gap 10 mmol/L; Blood Urea Nitrogen 13 mg/dL (7-17); Calcium 10.1 mg/dL (8.4-10.2); Carbon Dioxide 24 mmol/L (22-30); Total Bilirubin 0.3 mg/dL (0.2-1.3)
[2019-01-30] MEDS: IPRATROPIUM-ALBUTEROL 3 ML NEB INHALATION PRN (08:34)
--- NOTE | 2019-01-30 09:08 | P.HPIM ---
History of Present Illness H&P Date: 01/30/19 Chief Complaint: Left chest pain This is a pleasant 78-year-old female who presented to the urgent care clinic complaining of chest wall pain and shortness of breath. Chest x-ray was obtained that showed abnormalities. She was scheduled for a outpatient CAT scan of the chest. This scan now reveals confluent mediastinal, thoracic inlet, and supra clavicular lymphadenopathy with lymph nodes measuring up to 2.3 cm compatible with metastatic disease. Soft tissue the left upper lobe and lingula bronchus. There is irregular narrowing of the left mainstem and left lower lobe bronchus from extrinsic mass effect, likely secondary to increasing neoplasm. There is volume loss and complete opacification of the left upper lobe due to a combination of underlying mass, atelectasis and/or pneumonitis. There is severe burden of new diffuse metastatic disease to the liver. Evidence of moderate emphysema with trace left pleural effusion. CT of abdomen and pelvis shows left pleural effusion, extensive liver disease consistent with metastatic disease. Patient was then directly admitted to the hospital for further evaluation and pain control. Patient has been complaining of neck back and chest wall pain for approximately 6 months. Patient has medical history includes COPD, fiber myalgia, GERD, hyperlipidemia, thyroid disorder, prolonged QT syndrome, history of anemia, chronic back pain, Crohn's. Patient is currently a nonsmoker however she has a 1 pack a day for 60+ years history of smoking. At home she is taking Percocet and Tylenol for pain relief. A previous CAT scan from August 2018 revealed a mild infiltrate in the anterior segment of the left upper lobe. No pulmonary masses were identified. Patient states for the last 6 months she has been having increased episodes of back, chest, and neck pain. At this time patient is resting in bed in no respiratory distress. She continues to complain of neck and back pain. Patient is also concerned about pain management and further testing for staging of disease. Patient is reluctant to move forward with the bronchoscopy but will have the MRI of the brain and a nuclear bone scan. She also agreed with a liver biopsy. Family was at the bedside and this was discussed with them in length. Review of Systems All systems: negative Constitutional: Reports chills, Reports chronic pain, Reports fatigue, Reports fever, Reports malaise Eyes: denies blurred vision, denies pain Ears, nose, mouth and throat: Denies headache, Denies sore throat Cardiovascular: Reports dyspnea on exertion, Reports shortness of breath, Denies chest pain Respiratory: Reports cough, Reports dyspnea Gastrointestinal: Denies abdominal pain, Denies diarrhea, Denies nausea, Denies vomiting Genitourinary: Denies dysuria, Denies hematuria Musculoskeletal: Denies myalgias Integumentary: Denies pruritus, Denies rash, Denies wounds Neurological: Denies numbness, Denies weakness Psychiatric: Denies anxiety, Denies depression Endocrine: Denies fatigue, Denies weight change Past Medical History Past Medical History: COPD, Fibromyalgia, GERD/Reflux, Hyperlipidemia, Thyroid Disorder Additional Past Medical History / Comment(s): chronic back pain, Crohns, prolonged QT, Hepatitis A (20 yrs ago), Hx anemia., Hx of EGD with dilation., Bladder pain after urination., Walker prn. History of Any Multi-Drug Resistant Organisms: None Reported Past Surgical History: Bladder Surgery, Breast Surgery Additional Past Surgical History / Comment(s): rt breast biopsy- clip remains, EGD with Dilation Past Anesthesia/Blood Transfusion Reactions: No Reported Reaction Past Psychological History: Anxiety, Depression Smoking Status: Current every day smoker Past Alcohol Use History: None Reported Additional Past Alcohol Use History / Comment(s): smoked 50 years 1- 1 09/23 ppd quit 2015 Past Drug Use History: None Reported - Past Family History Daughter(s) Family Medical History: Cancer Sister(s) Family Medical History: Cancer Additional Family Medical History / Comment(s): lung cancer Brother(s) Family Medical History: Cancer, CVA/TIA Additional Family Medical History / Comment(s): liver cancer Mother Additional Family Medical History / Comment(s): hx myelofibrosis Medications and Allergies Home Medications Medication Instructions Recorded Confirmed Type Omeprazole 20 mg PO BID 09/02/18 01/29/19 History Pravastatin Sodium [Pravachol] 40 mg PO DAILY 09/02/18 01/29/19 History busPIRone HCl [Buspar] 15 mg PO BID 09/02/18 01/29/19 History Melatonin 10 mg PO HS 11/30/18 01/29/19 History Levothyroxine Sodium 25 mcg PO DAILY 12/17/18 01/29/19 History clonazePAM [KlonoPIN] 1 mg PO HS 12/17/18 01/29/19 History rOPINIRole HCL [Requip] 0.25 mg PO BID 12/17/18 01/29/19 History Cefuroxime Axetil [Ceftin] 500 mg PO BID 01/29/19 01/29/19 History Gabapentin [Neurontin] 900 mg PO TID 01/29/19 01/29/19 History methylPREDNISolone Dose Pack See Taper PO DAILY 01/29/19 01/29/19 History [Medrol Dose Pack] oxyCODONE-APAP 7.5-325MG [Percocet 1 tab PO Q6HR PRN 01/29/19 01/29/19 History 7.5-325 mg] Allergies Allergy/AdvReac Type Severity Reaction Status Date / Time Penicillins Allergy Unknown Verified 01/29/19 15:45 phenazopyridine Allergy Unknown Verified 01/29/19 15:45 [From Pyridium] Physical Exam Vitals: Vital Signs Temp Pulse Pulse Pulse Resp BP BP 01/30/19 08:46 80 01/30/19 08:35 80 01/30/19 05:00 97.7 F 56 L 20 154/76 01/29/19 20:43 88 01/29/19 20:33 88 01/29/19 20:25 98.1 F 53 L 20 144/69 01/29/19 16:00 20 01/29/19 14:51 98 F 64 17 136/71 Pulse Ox 01/30/19 08:46 01/30/19 08:35 01/30/19 05:00 92 L 01/29/19 20:43 01/29/19 20:33 01/29/19 20:25 96 01/29/19 16:00 01/29/19 14:51 95 Intake and Output 01/29/19 01/30/19 01/30/19 22:59 06:59 14:59 Other: Voiding Method Toilet # Voids 3 3 # Bowel Movements 2 Weight 67.585 kg General Appearance: Alert, cooperative, mild distress secondary to anxiety generalized pain, appears stated age. Neck HEENT: Supple, + lymphadenopathy, no thyroid enlargement, no carotid bruits. Lungs: Clear to auscultation without crackles or wheezes no rhonchi, no deformity. Chest Wall: Chest wall normal expansion with deep inspiration no tenderness and no deformity was found on exam, no costochondral pain or discomfort. Heart: Regular rate and rhythm, S1, S2 normal, no murmur, rub or gallop. Back: Symmetric, scoliosis, ROM limited with pain, no CVA tenderness. Abdomen: Soft, non-tender, no rebound or rigidity, no hepatosplenomegaly. Extremities: Extremities normal, atraumatic, no cyanosis or edema. Pulses: 2+ and symmetric. Skin: Skin color, texture, tugor normal, no rashes or lesions. Neurologic: Alert oriented x3 cranial nerves II through XII intact, no motor deficit, no abnormal balance or gait Results CBC & Chem 7: 01/30/19 07:56 01/30/19 07:56 Labs: Abnormal Lab Results - Last 24 Hours (Table) 01/29/19 01/29/19 01/29/19 Range/Units 14:41 14:41 14:41 WBC 12.6 H (3.8-10.6) k/uL MCHC 30.9 L (31.0-37.0) g/dL Plt Count 641 H (150-450) k/uL Neutrophils # (1.3-7.7) k/uL Sodium 133 L (137-145) mmol/L Glucose 113 H (74-99) mg/dL POC Glucose (mg/dL) (75-99) mg/dL AST 78 H (14-36) U/L ALT 74 H (9-52) U/L Alkaline Phosphatase 318 H (38-126) U/L Lactate Dehydrogenase (313-618) U/L Procalcitonin 0.12 H (0.02-0.09) ng/mL 01/29/19 01/29/19 01/30/19 Range/Units 14:41 22:33 07:56 WBC (3.8-10.6) k/uL MCHC (31.0-37.0) g/dL Plt Count 590 H (150-450) k/uL Neutrophils # 8.5 H (1.3-7.7) k/uL Sodium (137-145) mmol/L Glucose (74-99) mg/dL POC Glucose (mg/dL) 141 H (75-99) mg/dL AST (14-36) U/L ALT (9-52) U/L Alkaline Phosphatase (38-126) U/L Lactate Dehydrogenase 1372 H (313-618) U/L Procalcitonin (0.02-0.09) ng/mL 01/30/19 Range/Units 07:56 WBC (3.8-10.6) k/uL MCHC (31.0-37.0) g/dL Plt Count (150-450) k/uL Neutrophils # (1.3-7.7) k/uL Sodium 135 L (137-145) mmol/L Glucose 139 H (74-99) mg/dL POC Glucose (mg/dL) (75-99) mg/dL AST 72 H (14-36) U/L ALT 77 H (9-52) U/L Alkaline Phosphatase 331 H (38-126) U/L Lactate Dehydrogenase (313-618) U/L Procalcitonin (0.02-0.09) ng/mL Assessment and Plan Plan: 1. acute dyspnea secondary to COPD exacerbation. Decadron 4 mg IV push every 6 hours. Pulmonology and oncology consult appreciated. DuoNeb nebulizer treatment. 2. New lung mass with metastatic stasis to liver likely pulmonary. Nuclear bone scan, MRI with and without contrast of the brain, consult interventional radiology for a CT-guided liver biopsy. 3. Chronic pain. Fentanyl patch 25 g per hour patch every 72 hour, Dilaudid 1 mg IV push every 3 hours as needed, Percocet 7.5/325 one every 6 hours as needed 4. Fibromyalgia. Gabapentin 300 mg by mouth 3 times a day, 5. Abdominal pain and discomfort suspect secondary to new diffuse metastatic disease to the liver. Daily CMP, CBC. 6. Scoliosis with moderate to advanced degenerative disc disease of lower thoracic spine. Patient control as noted above. 7. Hyperlipidemia. Pravastatin 40 mg by mouth daily 9. Hypothyroidism. Synthroid 25mcg daily 10. Prolonged QT syndrome. 11. Anxiety. BuSpar 15 mg twice a day, Ativan 0.5 mg every 6 hours 12. History of pyloric stenosis status post EGD with pyloric dilatation October/2018 13. History of heavy chronic tobacco dependence, nonsmoker for 2 years. 14. DVT prophylaxis. Heparin 5000 units subcu every 12 hours 15. GI prophylaxis. Protonix 40 mg IV push twice a day Discharge plan: Minimal of 2 nights stay CODE STATUS: Full Impression and plan of care have been directed as dictated by the signing physician. Lizzeth Kinney nurse practitioner acting as scribe for signing physician.
[2019-01-30] MEDS: SENNOSIDES-DOCUSATE SODIUM 1 EACH TAB PO SCH (09:42)
[2019-01-30] MEDS: SODIUM CHLORIDE 0.9% 1,000 ML IV SCH (09:50)
--- NOTE | 2019-01-30 10:21 | P.PN ---
Subjective Progress Note Date: 01/30/19 Principal diagnosis: Left lung mass, strongly suspicious for lung cancer This is a very pleasant 78-year-old female patient who follows with Dr. Reyes as her primary care physician. She has a history of hypothyroidism, hyperlipidemia, gastroesophageal reflux disease, prolonged QT, colitis, chronic pain syndrome, fibromyalgia, restless leg syndrome, chronic urinary retention a nd dysuria. She has been maintained on Rindge 7.5325 3 times a day when necessary. She has been seen in the emergency room and more than 1 occasion for the symptoms of pain. In August 2018 she had been seen in the emergency room for abdominal pain and shortness of breath. A CAT scan at that time revealed a mild infiltrate in the anterior segment of the left upper lobe. No pulmonary masses identified. There were enlarged mediastinal and bronchial lymph nodes measuring up to 23 x 16 mm. There was a small 3 cm aneurysm in the lower abdominal aorta which the family states was being followed in the outpatient setting. She was seen this week at an urgent care for continued pain and short ness of breath and noted abnormalities on a chest x-ray. She was scheduled yesterday for an outpatient CAT scan of the chest. This scan now reveals confluent mediastinal, thoracic inlet, and supra clavicular lymphadenopathy with lymph nodes measuring up to 2.3 cm compatible with metastatic disease. Soft tissue the left upper lobe and lingula bronchus. There is irregular narrowing of the left mainstem and left lower lobe bronchus from extrinsic mass effect, likely secondary to increasing neoplasm. There is volume loss and complete opacification of the left upper lobe due to a combination of underlying mass, atelectasis and/or pneumonitis. There is severe burden of new diffuse metastatic disease to the liver. Evidence of moderate emphysema with trace left pleural effusion. Based on these findings and the patient's continued complaints of pain including left chest wall and under her left arm she was referred as a direct admit for pain control by Dr. Bartlett. She is seen today in consultation on the oncology floor. She is currently awake and alert in no acute distress. She is maintaining O2 saturations in the mid 90s on room air. She's afebrile. Hemodynamically stable. White count 12.6. Hemoglobin 12.7. Creatinine 0.85. AST 78, ALT 74, alk phos 318. She has been initiated on Rindge, Dilaudid, IV Solu-Medrol. Computed tomography scan of the abdomen has been ordered as well. Reevaluated today on 01/30/2019, patient is about the same, continues to have pain in the left axillary area and left sided chest wall. Yesterday when I saw the patient, she was agreeable to proceed with bronchoscopy and biopsy of the left upper lobe mass, however today the patient changed her mind. I gave her the option of CT-guided needle biopsy of the liver lesions which is a procedure done under local anesthetic and she will not have to be given any IV sedation. Patient seems to be more agreeable to proceed with that plan, and I will try to schedule the patient for a CT-guided needle liver biopsy by interventional radiology on Friday if possible. Will canceled plans regarding bronchoscopy since the patient seems to be extremely reluctant to have it done. Labs were reviewed including her normal basic metabolic profile and CBC. Platelets are elevated at 590,000. Liver enzymes were noted to be a bit elevated. Objective - Vital Signs Vital signs: Vital Signs Temp 97.7 F 01/30/19 05:00 Pulse 80 01/30/19 08:46 Resp 20 01/30/19 05:00 BP 154/76 01/30/19 05:00 Pulse Ox 92 L 01/30/19 05:00 Intake & Output 01/29/19 01/30/19 01/30/19 18:59 06:59 18:59 Weight 67.585 kg Other: Voiding Method Toilet # Voids 3 # Bowel Movements 2 - Exam GENERAL EXAM: Pleasant 78-year-old female patient. Alert, in mild distress se condary to generalized pain. HEENT: PERRLA, EOMI, dry mucous membranes, no neck masses, no JVD, no stridor. CHEST: No chest wall deformity. LUNGS: Diminished air entry on the left side. wheezing noted on the left side more so on forced expiratory maneuver. Definitely unilateral. CVS: S1 and S2 normal with no audible murmur, regular rhythm. ABDOMEN: No hepatosplenomegaly, normal bowel sounds, no guarding or rigidity. SPINE: Scoliosis SKIN: No rashes CENTRAL NERVOUS SYSTEM: No focal deficits, tone is normal in all 4 extremities. EXTREMITIES: There is no peripheral edema. No clubbing, no cyanosis. Peripheral pulses are intact. Psychiatric: Anxious mood, blunt affect, intact mental status. - Labs CBC & Chem 7: 01/30/19 07:56 01/30/19 07:56 Labs: Abnormal Lab Results - Last 24 Hours (Table) 01/29/19 01/29/19 01/29/19 Range/Units 14:41 14:41 14:41 WBC 12.6 H (3.8-10.6) k/uL MCHC 30.9 L (31.0-37.0) g/dL Plt Count 641 H (150-450) k/uL Neutrophils # (1.3-7.7) k/uL Sodium 133 L (137-145) mmol/L Glucose 113 H (74-99) mg/dL POC Glucose (mg/dL) (75-99) mg/dL AST 78 H (14-36) U/L ALT 74 H (9-52) U/L Alkaline Phosphatase 318 H (38-126) U/L Lactate Dehydrogenase (313-618) U/L Procalcitonin 0.12 H (0.02-0.09) ng/mL 01/29/19 01/29/19 01/30/19 Range/Units 14:41 22:33 07:56 WBC (3.8-10.6) k/uL MCHC (31.0-37.0) g/dL Plt Count 590 H (150-450) k/uL Neutrophils # 8.5 H (1.3-7.7) k/uL Sodium (137-145) mmol/L Glucose (74-99) mg/dL POC Glucose (mg/dL) 141 H (75-99) mg/dL AST (14-36) U/L ALT (9-52) U/L Alkaline Phosphatase (38-126) U/L Lactate Dehydrogenase 1372 H (313-618) U/L Procalcitonin (0.02-0.09) ng/mL 01/30/19 Range/Units 07:56 WBC (3.8-10.6) k/uL MCHC (31.0-37.0) g/dL Plt Count (150-450) k/uL Neutrophils # (1.3-7.7) k/uL Sodium 135 L (137-145) mmol/L Glucose 139 H (74-99) mg/dL POC Glucose (mg/dL) (75-99) mg/dL AST 72 H (14-36) U/L ALT 77 H (9-52) U/L Alkaline Phosphatase 331 H (38-126) U/L Lactate Dehydrogenase (313-618) U/L Procalcitonin (0.02-0.09) ng/mL Assessment and Plan Assessment: #1 Dyspnea secondary to progressive confluent mediastinal, thoracic inlet, and supra clavicular lymphadenopathy with lymph nodes measuring up to 2.3 cm area compatible with metastatic disease. Soft tissue cuts off the left upper lobe and lingular bronchus. There is irregular narrowing of the left mainstem and left lower lobe bronchus from extrinsic mass affect him a likely secondary to an JOSE D neoplasm. Volume loss and complete opacification of the left upper lobe due to a combination of underlying mass, atelectasis, and/or pneumonitis. Suspect small cell lung cancer due to the rapid progression. #2 Abdominal pain and discomfort suspect secondary to severe burden of new diffuse metastatic disease to the liver. Elevated LFTs. #3 Left chest wall pain suspect metastatic involvement. #4 History of heavy chronic tobacco dependence however quit 2 years ago. #5 Scoliosis with moderate to advanced degenerative disc disease of the lower thoracic spine. #6 History of pyloric stenosis status post EGD with pyloric dilation on 11/13/2018. #7 History of chronic pain syndrome. #8 Hyperlipidemia. #9 Hypothyroidism. #10 Anxiety. #11 Prolonged QT syndrome. Recommendation: I had a long discussion with the patient and her daughter today at bedside again, and considering the patient is refusing to undergo bronchoscopy and she is willing to have CT-guided biopsy of the liver with local anesthetic, we will go ahead and arrange for interventional radiology to perform CT-guided needle biopsy of liver lesions. Hopefully this can be done on Friday. In the meantime patient will remain on the same medications for pain control. Discussed her condition with her daughter, admitting physician, and the onco logist Dr. Hawthorne. All seems to be agreeable to proceed with CT-guided needle biopsy of liver lesions. Time with Patient: Less than 30
[2019-01-30] MEDS: busPIRone HCl 5 MG TAB PO SCH ×2 (10:35→20:11)
[2019-01-30] MEDS: GABAPENTIN 300 MG CAP PO SCH ×3 (10:35→21:22)
--- NOTE | 2019-01-30 11:45 | MR ---
EXAMINATION TYPE: MR brain wo/w con DATE OF EXAM: 01/30/2019 11:16 AM COMPARISON: Previous study dated 11/14/2010 HISTORY: Mets TECHNIQUE: Multiplanar, multiecho imaging of the brain was obtained with and without intravenous adm inistration of 7.5 mL intravenous Gadavist. FINDINGS: The study is compromised by patient motion artifact. Midline structures are unremarkable. There is a normal craniocervical junction. Echoplanar diffusion imaging demonstrates no areas of restricted diffusion within the brain. There is some restricted diffusion within the skull corresponding to lesions on both the FLAIR and T2-weighte d images. The orbits are unremarkable. There is no evidence of a CP angle mass lesion. There is both punctate and confluent periventricular white matter changes. Similar in appearance to t he previous examination. There is no mass effect, midline shift or intracranial blood identified. Following intravenous administration of gadolinium, I do not see evidence of intraparenchymal abnorma l enhancement. At least one if not 2 of the lesions in the skull demonstrate mild enhancement. IMPRESSION: 1. NO EVIDENCE OF METASTASES AT THIS TIME. 2. PUNCTATE AND CONFLUENT PERIVENTRICULAR WHITE MATTER CHANGE UNCHANGED FROM PREVIOUS LIKELY ON THE B ASIS OF CHRONIC ISCHEMIC CHANGE AND SMALL VESSEL DISEASE. 3. I COULD NOT EXCLUDE METASTASES TO THE SKULL.
[2019-01-30] MEDS ORDERED: HYDROmorphone 0.5 MG/0.5 ML SYRINGE IM SCH (12:00)
--- NOTE | 2019-01-30 12:13 | NM ---
EXAMINATION TYPE: NM bone scan whole body DATE OF EXAM: 01/30/2019 COMPARISON: NONE HISTORY: Metastatic cancer Delayed whole-body scanning was performed following the injection of 23.6 mCi Tc 99m MDP. Images acq uired 4 hours post injection. FINDINGS: There is increased activity in the left side of the skull and also near the midline of the skull. There is increased activity within the left 10th rib as well as the right 10th rib. There is s ome questionable activity on the left either in the inferior tip of the scapula or in the left sevent h rib. There is some increased activity noted within the right second or third rib. There is increased activity in the base of both thumbs. There is an S-shaped scoliosis convex to the right in the lower thoracic spine and to the left in the lumbar spine. IMPRESSION: ABNORMAL ACTIVITY DESCRIBED. I COULD NOT EXCLUDE METASTATIC DISEASE. ACTIVITY AT THE BASE OF THE T HUMB IS BELIEVED TO BE DEGENERATIVE IN NATURE.
[2019-01-30] MEDS: PANTOPRAZOLE 40 MG TABLET PO SCH (16:12)
[2019-01-30] MEDS: oxyCODONE-APAP 7.5-325MG 1 EACH TAB PO PRN ×2 (16:12→21:17)
[2019-01-30] MEDS: LORazepam 0.5 MG TAB PO PRN (20:12)
[2019-01-30] MEDS ORDERED: NON-FORMULARY DRUG (Omeprazole [Omeprazole] 20 MG) PO SCH (21:00)
[2019-01-30] MEDS ORDERED: clonazePAM 1 MG TAB PO SCH (21:00)
--- NOTE | 2019-01-31 00:25 | P.PN ---
Subjective Progress Note Date: 01/30/19 The patient shortness of breath appears to be improved. She is not complaining of any difficulty with inhalation, or swallowing. She is still complaining of chest wall pain and remains quite anxious. There is mild generalized weakness Objective - Vital Signs Vital signs: Vital Signs Temp 97.9 F 01/30/19 20:25 Pulse 55 L 01/30/19 20:25 Resp 16 01/30/19 20:25 BP 147/61 01/30/19 20:25 Pulse Ox 96 01/30/19 20:25 Intake & Output 01/30/19 01/30/19 01/31/19 06:59 18:59 06:59 Intake Total 600 Balance 600 Intake: Oral 600 Other: # Voids 3 2 1 # Bowel Movements 2 - Constitutional General appearance: Present: no acute distress - EENT Eyes: Present: EOMI, PERRLA ENT: Present: hearing grossly normal, normal oropharynx - Neck Details: no significant stridor noted on exam Thyroid: bilateral: normal size - Respiratory Respiratory: bilateral: CTA - Cardiovascular Rhythm: regular Heart sounds: normal: S1, S2 - Gastrointestinal General gastrointestinal: Present: normal bowel sounds, soft - Integumentary Integumentary: Present: normal - Neurologic Neurologic: Present: CNII-XII intact - Musculoskeletal Musculoskeletal: Present: generalized weakness, strength equal bilaterally - Psychiatric Psychiatric: Present: A&O x's 3, appropriate affect - Labs CBC & Chem 7: 01/30/19 07:56 01/30/19 07:56 Labs: Abnormal Lab Results - Last 24 Hours (Table) 01/30/19 01/30/19 Range/Units 07:56 07:56 Plt Count 590 H (150-450) k/uL Neutrophils # 8.5 H (1.3-7.7) k/uL Sodium 135 L (137-145) mmol/L Glucose 139 H (74-99) mg/dL AST 72 H (14-36) U/L ALT 77 H (9-52) U/L Alkaline Phosphatase 331 H (38-126) U/L Assessment and Plan (1) Metastatic cancer to liver Narrative/Plan: The patient is presenting with marked mediastinal adenopathy, and likely underlying left hilar mass with obstruction, with marked progression since 09/08. In addition there appeared to be diffuse liver metastasis. The clinical picture is highly suggestive of an aggressive metastatic malignancy, clinically, the most likely possibility would be a lung primary, especially small cell cancer. Other etiologies such as aggressive lymphoma are not ruled out but less likely. The above, and implications were discussed in detail with the patient and her daughter . They were advised that, assuming lung primaries confirmed, this would represents stage IV disease, which would not be curable. The mainstay of treatment would be prolongation of life and palliation of symptoms. The patient was quite categorical that she does not want chemotherapy. However she was advised that specific treatment options can be discussed only once the diagnosis is confirmed. Prognosis with and without treatment for her stage, for different types of primary lung malignancy is was also discussed. The patient was rapidly initially somewhat unsure about even pursuing a diagnosis. However currently she has decided to go ahead with a diagnostic procedure, specifically liver biopsy. She did refuse bronchoscopy. She was advised that the liver biopsy would be as effective in obtaining a diagnosis as bronchoscopy. Await liver biopsy for tissue diagnosis. MRI brain has also been ordered and is pending for additional staging She and her daughter otherwise, that assuming that her aggressive malignancy is confirmed, if the patient were to choose no active treatment, then comfort care would be recommended is most appropriate Current Visit: Yes Status: Acute Code(s): C78.7 - SECONDARY MALIG NEOPLASM OF LIVER AND INTRAHEPATIC BILE DUCT SNOMED Code(s): 34363019 (2) Pain, neoplasm-related Narrative/Plan: The patient has had ongoing chest wall pain for some months. Given current findings, this is more likely to be related to underlying malignancy. She may have chest wall/pleural involvement, that is not well-demonstrated on CT scans. She has been started on fentanyl, and is also on breakthrough medication. Pain medications and be adjusted based on response. She was also advised, that if she were to refuse active treatment such as chemotherapy (assuming lung primary is confirmed) radiation can be an option for palliation Current Visit: Yes Status: Acute Code(s): G89.3 - NEOPLASM RELATED PAIN ( ACUTE) (CHRONIC) SNOMED Code(s): 07209409316458 Plan: the patient is also on Ativan for her significant anxiety
[2019-01-31] MEDS: HYDROmorphone 1 MG/ML 1 ML SYRINGE IVP PRN ×3 (04:17→12:35)
[2019-01-31] MEDS: SODIUM CHLORIDE 0.9% 1,000 ML IV SCH (04:18)
[2019-01-31] MEDS: DEXAMETHASONE SOD PHOSPHATE 4 MG/ML 1 ML VIAL IV SCH ×2 (06:11→12:35)
[2019-01-31] MEDS ORDERED: LEVOTHYROXINE 25 MCG TAB PO SCH (06:30)
[2019-01-31] MEDS: FAMOTIDINE 20 MG TAB PO SCH (08:43)
[2019-01-31] MEDS: HEPARIN SODIUM,PORCINE 5,000 UNIT/ML 1 ML VIAL SQ SCH (08:43)
[2019-01-31] MEDS: SENNOSIDES-DOCUSATE SODIUM 1 EACH TAB PO SCH (08:44)
[2019-01-31] MEDS: GABAPENTIN 300 MG CAP PO SCH (08:44)
[2019-01-31] MEDS: busPIRone HCl 5 MG TAB PO SCH (08:44)
[2019-01-31] MEDS: PANTOPRAZOLE 40 MG TABLET PO SCH (08:44)
[2019-01-31] MEDS ORDERED: PRAVASTATIN SODIUM 40 MG TAB PO SCH (09:00)
[2019-01-31] MEDS ORDERED: LORazepam 0.5 MG TAB PO PRN (09:28)
[2019-01-31] MEDS ORDERED: ATROPINE OPHTH SOLN 1% 5ML BTL SUBLINGUAL PRN (09:53)
[2019-01-31] MEDS ORDERED: ARTIFICIAL TEARS-HYPROMELLOSE DROPS 15 ML BTL BOTH EYES PRN (09:53)
[2019-01-31] MEDS ORDERED: guaiFENesin SYRUP 100MG/5ML 200 MG/10 ML CUP PO PRN (09:53)
--- NOTE | 2019-01-31 12:32 | P.DS ---
Providers Date of admission: 01/30/19 18:20 Attending physician: Manoj Stewart MD Consults: 01/29/19 14:05 Consult Physician Routine Consulting Provider: Sahil Hawthorne Consult Reason/Comments: new dx Lung ca w mets Do you want consulting provider notified?: Yes 01/29/19 14:06 Consult Physician Routine Consulting Provider: Em Baker Consult Reason/Comments: new dx lung ca with mets Do you want consulting provider notified?: Yes Primary care physician: [facility] Course: This is a pleasant 78-year-old female who presented to the urgent care clinic complaining of chest wall pain and shortness of breath. Chest x-ray was obtained that showed abnormalities. She was scheduled for a outpatient CAT scan of the chest. This scan now reveals confluent mediastinal, thoracic inlet, and supra clavicular lymphadenopathy with lymph nodes measuring up to 2.3 cm compatible with metastatic disease. Soft tissue the left upper lobe and lingula bronchus. There is irregular narrowing of the left mainstem and left lower lobe bronchus from extrinsic mass effect, likely secondary to increasing neoplasm. There is volume loss and complete opacification of the left upper lobe due to a combination of underlying mass, atelectasis and/or pneumonitis. There is severe burden of new diffuse metastatic disease to the liver. Evidence of moderate emphysema with trace left pleural effusion. CT of abdomen and pelvis shows left pleural effusion, extensive liver disease consistent with metastatic disease. Patient was then directly admitted to the hospital for further evaluation and pain control. Patient has been complaining of neck back and chest wall pain for approximately 6 months. Patient has medical history includes COPD, fiber myalgia, GERD, hyperlipidemia, thyroid disorder, prolonged QT syndrome, history of anemia, chronic back pain, Crohn's. Patient is currently a nonsmoker however she has a 1 pack a day for 60+ years history of smoking. At home she is taking Percocet and Tylenol for pain relief. A previous CAT scan from August 2018 revealed a mild infiltrate in the anterior segment of the left upper lobe. No pulmonary masses were identified. Patient states for the last 6 months she has been having increased episodes of back, chest, and neck pain. At this time patient is resting in bed in no respiratory distress. She continues to complain of neck and back pain. Patient is also concerned about pain management and further testing for staging of disease. Patient is reluctant to move forward with the bronchoscopy but will have the MRI of the brain and a nuclear bone scan. She also agreed with a liver biopsy. Family was at the bedside and this was discussed with them in length. 01/31: Patient continues to have chest wall pain and rib pain. Patient denies any shortness of breath or difficulty swallowing. Patient continues to have anxiety she did have some confusion in the night and pulled out her IV. Patient has decided to enter hospice care. She has declined the liver biopsy. Patient is requesting to go home. Family is at the bedside for this discussion also. Discharge diagnosis 1. acute dyspnea secondary to COPD exacerbation. 2. New lung mass with metastatic stasis to liver likely pulmonary. 3. Chronic pain. 4. Fibromyalgia. 5. Abdominal pain and discomfort suspect secondary to new diffuse metastatic disease to the liver. 6. Scoliosis with moderate to advanced degenerative disc disease of lower thoracic spine. 7. Hyperlipidemia. 9. Hypothyroidism. 10. Prolonged QT syndrome. 11. Anxiety. 12. History of pyloric stenosis status post EGD with pyloric dilatation 13. History of heavy chronic tobacco dependence, nonsmoker for 2 years. Discharge disposition: Home with hospice Impression and plan of care have been directed as dictated by the signing physician. Lizzeth Kinney nurse practitioner acting as scribe for signing physician. Plan - Discharge Summary Discharge Rx Participant: No New Discharge Prescriptions: New LORazepam [Ativan] 0.5 mg PO BID PRN #6 tab PRN Reason: Anxiety fentaNYL 25MCG/HR PATCH [Duragesic 25MCG/HR] 1 patch TRANSDERM Q72H #1 patch Sennosides-Docusate Sodium [Senokot-S] 1 each PO DAILY tab MORPHINE ORAL ALEJANDRO CONC 20mg/mL [Roxanol Oral Soln Conc 20MG/ML] 10 mg PO Q4H PRN 3 Days #9 ml PRN Reason: Pain Continue busPIRone HCl [Buspar] 15 mg PO BID Melatonin 10 mg PO HS rOPINIRole HCL [Requip] 0.25 mg PO BID Gabapentin [Neurontin] 900 mg PO TID Omeprazole 20 mg PO BID #30 capsule.dr Discontinued Pravastatin Sodium [Pravachol] 40 mg PO DAILY clonazePAM [KlonoPIN] 1 mg PO HS Levothyroxine Sodium 25 mcg PO DAILY methylPREDNISolone Dose Pack [Medrol Dose Pack] See Taper PO DAILY Cefuroxime Axetil [Ceftin] 500 mg PO BID oxyCODONE-APAP 7.5-325MG [Percocet 7.5-325 mg] 1 tab PO Q6HR PRN PRN Reason: Pain Discharge Medication List busPIRone HCl [Buspar] 15 mg PO BID 09/02/18 [History] Melatonin 10 mg PO HS 11/30/18 [History] rOPINIRole HCL [Requip] 0.25 mg PO BID 12/17/18 [History] Gabapentin [Neurontin] 900 mg PO TID 01/29/19 [History] LORazepam [Ativan] 0.5 mg PO BID PRN #6 tab 01/31/19 [Rx] MORPHINE ORAL ALEJANDRO CONC 20mg/mL [Roxanol Oral Soln Conc 20MG/ML] 10 mg PO Q4H PRN 3 Days #9 ml 01/31/19 [Rx] Omeprazole 20 mg PO BID #30 capsule. 01/31/19 [Rx] Sennosides-Docusate Sodium [Senokot-S] 1 each PO DAILY tab 01/31/19 [Rx] fentaNYL 25MCG/HR PATCH [Duragesic 25MCG/HR] 1 patch TRANSDERM Q72H #1 patch 01/31/19 [Rx] Patient Instructions/Handouts: Lorazepam (By mouth), Omeprazole (By mouth), Morphine, Rapid Release (By mouth), Fentanyl (Absorbed through the skin)
[2019-01-31 12:39] VITALS: BP 133/67; PULSE 52; RESP 16; TEMP 97.8
== END 2019-01-31 13:35 | disposition hospice, home (50) | DRG 191 ==
LOC: 3NMEDONC 14:15 → OBSVTOIN 01-30 18:20
PROVIDERS: ADMIT Internal Medicine; ATTEND Internal Medicine
DX: J43.9 Emphysema, unspecified (principal); C34.90 Malignant neoplasm of unspecified part of unspecified bronchus or lung; C78.7 Secondary malignant neoplasm of liver and intrahepatic bile duct; C77.1 Secondary and unspecified malignant neoplasm of intrathoracic lymph nodes; J90 Pleural effusion, not elsewhere classified; K50.90 Crohn's disease, unspecified, without complications; E03.9 Hypothyroidism, unspecified; Z51.5 Encounter for palliative care; E78.5 Hyperlipidemia, unspecified; F17.210 Nicotine dependence, cigarettes, uncomplicated; F32.9 Major depressive disorder, single episode, unspecified; F41.9 Anxiety disorder, unspecified; G25.81 Restless legs syndrome; G89.3 Neoplasm related pain (acute) (chronic); G89.4 Chronic pain syndrome; I45.81 Long QT syndrome; I71.9 Aortic aneurysm of unspecified site, without rupture; K21.9 Gastro-esophageal reflux disease without esophagitis; M41.9 Scoliosis, unspecified; M51.34 Other intervertebral disc degeneration, thoracic region; M79.7 Fibromyalgia; R33.9 Retention of urine, unspecified; M54.9 Dorsalgia, unspecified; R30.0 Dysuria; Z87.440 Personal history of urinary (tract) infections; Z79.890 Hormone replacement therapy; Z79.899 Other long term (current) drug therapy; Z88.0 Allergy status to penicillin; Z88.8 Allergy status to other drugs, medicaments and biological substances; Z80.0 Family history of malignant neoplasm of digestive organs; Z80.1 Family history of malignant neoplasm of trachea, bronchus and lung; Z82.3 Family history of stroke
CPT/HCPCS: 70553; 71250; 74177; 78306; 80053; 83615; 84145; 85025; 85027; 85610; 94640

== ENCOUNTER 2019-02-13 12:50 | Inpatient (IN) | payer MEDICAID, MEDICARE, OTHER ==
[2019-02-13] MEDS: LORazepam 2 MG/ML INJ IV PRN ×4 (15:21→23:00)
[2019-02-13] MEDS: MORPHINE SULFATE (100 MG/2 ML) 100 MG in SODIUM CHLORIDE 0.9% 100 ML IV SCH ×3 (15:53→16:46)
[2019-02-13] MEDS ORDERED: ACETAMINOPHEN SUPPOSITORY 650 MG SUPP RECTAL PRN (16:29)
[2019-02-13] MEDS ORDERED: ARTIFICIAL TEARS-HYPROMELLOSE DROPS 15 ML BTL BOTH EYES PRN (16:29)
[2019-02-13] MEDS ORDERED: ONDANSETRON 4 MG/2 ML VIAL IVP PRN (16:29)
[2019-02-13] MEDS ORDERED: SODIUM CHLORIDE 0.9% 1,000 ML IV SCH (16:45)
[2019-02-14] MEDS: LORazepam 2 MG/ML INJ IV PRN ×6 (01:34→12:28)
[2019-02-14 03:16] VITALS: PULSE 97
[2019-02-14] MEDS: ATROPINE OPHTH SOLN 1% 5ML BTL SUBLINGUAL PRN ×2 (08:39→11:03)
[2019-02-14] MEDS: MORPHINE SULFATE (100 MG/2 ML) 100 MG in SODIUM CHLORIDE 0.9% 100 ML IV SCH (09:48)
[2019-02-14 10:04] VITALS: RESP 24
[2019-02-14] MEDS ORDERED: SCOPOLAMINE 1.5MG/72HR PATCH TRANSDERM SCH (10:15)
[2019-02-14] MEDS: HYDROmorphone 1 MG/ML 1 ML SYRINGE IVP PRN ×2 (11:54→13:30)
[2019-02-14] MEDS ORDERED: GLYCOPYRROLATE 0.2 MG/ML 2 ML VIAL IVP PRN (13:15)
[2019-02-14] MEDS ORDERED: MORPHINE SULFATE 2 MG/ML SYRINGE IVP PRN (14:02)
--- NOTE | 2019-02-25 14:52 | P.PN ---
Progress Note - Text Progress Note Date: 02/14/19 Patient came in to the hospital under respite hospice care with [facility] and patient passed within several hours. Patient was not evaluated by medicine.
== END 2019-02-14 16:48 | disposition expired | DRG 951 ==
LOC: 4SSUR 14:20
PROVIDERS: ADMIT Internal Medicine; ATTEND Internal Medicine
DX: Z51.5 Encounter for palliative care (principal); Z66 Do not resuscitate; Z79.891 Long term (current) use of opiate analgesic; Z79.899 Other long term (current) drug therapy